=== PATIENT | female | born 1945 | race African-American/Black ===

== ENCOUNTER 2018-05-10 05:29 | Inpatient (IN) | payer OTHER ==
[2018-05-10] VITALS (23 sets, daily range): BP systolic 119–169; BP diastolic 63–91
[~2018-05-10] VITALS: Ht 172.7 cm; Wt 73.5 kg
[2018-05-10] MEDS ORDERED: CARV6.2511 PO (05:51)
[2018-05-10] MEDS ORDERED: PANTOPRAZOLE IV PUSH 40 MG VIAL. IVP ONE (06:30)
[2018-05-10] MEDS ORDERED: IV NORMAL SALINE 500ML BAG 500 ML IV SCH (06:30)
--- NOTE | 2018-05-10 06:32 | PHYS DOC ---
Past Medical History Past Medical History: Hypertension Additional Past Medical Histor: hemmorroids Past Surgical History: No Surgical History Smoking: Cigarettes, Less than 1pk/day Alcohol Use: Rarely Drug Use: None Adult General Chief Complaint Chief Complaint: RECTAL BLEED [facility] HPI Patient is a 72 year old female who presents with complaining of anal bleeding. Patient complaining of 5 episodes of rectal bleeding since 2300 last night with bright red blood and blood clots mixed with stool that changed to pure blood this morning. Patient reported mild dizziness without abdominal pain , nausea and vomiting, urinary symptoms, shortness of breath and chest pain, history of GI bleeding, taking anticoagulating or [id number] NSAIDS. Patient denies constipation or diarrhea and states she usually has 2-3 episodes of firm stool every day without new change recently. Patient states she had 2 unremarkable colonoscopy and the last one was about 5 or 6 years ago. Review of Systems Review of Systems Constitutional: Denies fever or chills [] Eyes: Denies change in visual acuity, redness, or eye pain [] HENT: Denies nasal congestion or sore throat [] Respiratory: Denies cough or shortness of breath [] Cardiovascular: No additional information not addressed in HPI [] GI: Denies abdominal pain, nausea, vomiting, diarrhea, reports bloody stools [] : Denies dysuria or hematuria [] Musculoskeletal: Denies back pain or joint pain [] Integument: Denies rash or skin lesions [] Neurologic: Denies headache, focal weakness or sensory changes [] Endocrine: Denies polyuria or polydipsia [] All other systems were reviewed and found to be within normal limits, except as documented in this note. Current Medications Current Medications Current Medications Medications (Trade) Dose Ordered Sig/Madeleine Start Time Stop Time Status Last Admin Dose Admin Pantoprazole Sodium (PROTONIX VIAL for IV PUSH) 40 mg 1X ONCE 05/10/18 06:30 05/10/18 06:31 DC 05/10/18 06:36 40 MG Sodium Chloride 500 ml @ 500 mls/hr Q1H 05/10/18 06:30 05/10/18 06:37 DC 05/10/18 06:36 500 MLS/HR Allergies Allergies Allergies Coded Allergies Type Severity Reaction Last Updated Verified No Known Drug Allergies 05/10/18 No Physical Exam Physical Exam Constitutional: Well developed, well nourished, mild distress, non-toxic appearance. [] HENT: Normocephalic, atraumatic, oropharynx moist.] Eyes: PERRLA, EOMI, conjunctiva normal, no discharge. [] Neck: Normal range of motion, no tenderness, supple, no stridor. [] Cardiovascular:Heart rate regular rhythm, no murmur [] Lungs & Thorax: Bilateral breath sounds clear to auscultation [] Abdomen: Bowel sounds normal, soft, no tenderness, no masses, no pulsatile masses. Rectal exam with present of ux ui designer showed blood on diaper and around anal area with gross blood in rectum without palpable mass. Skin: Warm, dry, no erythema, no rash. [] Back: No tenderness, no CVA tenderness. [] Extremities: No tenderness, no cyanosis, no clubbing, ROM intact, 2+ bilateral lower extremity edema. [] Neurologic: Alert and oriented X 3, normal motor function, normal sensory function, no focal deficits noted. [] Psychologic: Affect normal, judgement normal, mood normal. [] Current Patient Data Vital Signs Vital Signs Date Time Temp Pulse Resp B/P (MAP) Pulse Ox O2 Delivery O2 Flow Rate FiO2 05/10/18 07:00 76 199/95 (129) 97 Room Air 05/10/18 06:28 20 05/10/18 05:40 97.4 97.4 Lab Values Laboratory Tests Test 05/10/18 06:25 White Blood Count 5.9 x10^3/uL (4.0-11.0) Red Blood Count 4.86 x10^6/uL (3.50-5.40) Hemoglobin 11.0 g/dL (12.0-15.5) L Hematocrit 35.0 % (36.0-47.0) L Mean Corpuscular Volume 72 fL (79-100) L Mean Corpuscular Hemoglobin 23 pg (25-35) L Mean Corpuscular Hemoglobin Concent 31 g/dL (31-37) Red Cell Distribution Width 15.7 % (11.5-14.5) H Platelet Count 193 x10^3/uL (140-400) Neutrophils (%) (Auto) 61 % (31-73) Lymphocytes (%) (Auto) 27 % (24-48) Monocytes (%) (Auto) 9 % (0-9) Eosinophils (%) (Auto) 2 % (0-3) Basophils (%) (Auto) 1 % (0-3) Neutrophils # (Auto) 3.6 x10^3uL (1.8-7.7) Lymphocytes # (Auto) 1.6 x10^3/uL (1.0-4.8) Monocytes # (Auto) 0.5 x10^3/uL (0.0-1.1) Eosinophils # (Auto) 0.1 x10^3/uL (0.0-0.7) Basophils # (Auto) 0.1 x10^3/uL (0.0-0.2) Platelet Estimate Adequate (ADEQUATE) Anisocytosis Slight Prothrombin Time 14.2 SEC (11.7-14.0) H Prothrombin Time INR 1.1 (0.8-1.1) PTT 32 SEC (24-38) Sodium Level 141 mmol/L (136-145) Potassium Level 3.6 mmol/L (3.5-5.1) Chloride Level 106 mmol/L (98-107) Carbon Dioxide Level 25 mmol/L (21-32) Anion Gap 10 (6-14) Blood Urea Nitrogen 16 mg/dL (7-20) Creatinine 1.0 mg/dL (0.6-1.0) Estimated GFR (Cockcroft-Gault) 65.6 BUN/Creatinine Ratio 16 (6-20) Glucose Level 112 mg/dL (70-99) H Calcium Level 8.5 mg/dL (8.5-10.1) Total Bilirubin 0.5 mg/dL (0.2-1.0) Aspartate Amino Transferase (AST) 43 U/L (15-37) H Alanine Aminotransferase (ALT) 30 U/L (14-59) Alkaline Phosphatase 61 U/L (46-116) Troponin I Quantitative 0.072 ng/mL (0.000-0.055) WS-Hvf-D-Type Natriuretic Peptide 22155 pg/mL (0-124) H Total Protein 7.0 g/dL (6.4-8.2) Albumin 2.8 g/dL (3.4-5.0) L Albumin/Globulin Ratio 0.7 (1.0-1.7) L Laboratory Tests 05/10/18 06:25 Laboratory Tests 05/10/18 06:25 EKG EKG EKG interpreted by me. EKG at 0713 showed normal sinus rhythm at rate of 74, prolonged TX interval at 232, prolonged QTc interval, left atrial abnormalities , leftward axis, left bundle branch block, no acute ST abnormalities. Radiology/Procedures Radiology/Procedures [facility] [address] [place] [address] IMAGING REPORT Signed PATIENT: ALISE BAR ACCOUNT: [id number] : 1945 LOCATION: [facility] ICU AGE: 72 SEX: F EXAM STATUS: ADM IN ORD. PHYSICIAN: RAAD BAXTER MD REASON: elevated BNP and hypertension 21 PROCEDURE: PORTABLE CHEST 1V Portable chest, 05/10/2018: HISTORY: Elevated BNP and hypertension The heart is enlarged. There is calcific plaquing the aorta. The pulmonary vascularity is normal. No pulmonary infiltrate is seen. There is no evidence of pleural fluid. IMPRESSION: 1. Cardiomegaly and aortic atherosclerosis. 2. No acute infiltrates. Electronically signed by: Terrell Mack MD (05/10/2018 8:40 AM) [facility] DICTATED and SIGNED BY: TERRELL MACK MD DATE: 05/10/18839 Course & Med Decision Making Course & Med Decision Making Pertinent Labs and Imaging studies reviewed. (See chart for details) Evaluation of patient in ER showed 72-year-old female patient complaining of several episodes of rectal bleeding. Patient had obvious gross blood in rectum and had 1 episodes of rectal bleeding with large amount of blood clot while she was in ER. Patient had blood pressure of more than 200 in several checking and stated that she didn't take her blood pressure medication today. Patient did not have type tachycardia or altered level of consciousness. Hemoglobin was 11.0. On-call GI doctor Aftab was consulted at 0737 and plans to see patient in ICU. Patient had BMP of more than 10,000 and marked elevation of troponin that could be related to enlarged heart showed left bundle branch block without old EKG to compare. Dr. Miller accepted admission at 0801. 0900: Patient had another episode of large rectal bleeding with blood clots and drop off blood pressure to 98 that improved with starting IV fluids to 148 without tachycardia. Admitting hospitalist was at bedside at the time of rectal bleeding. Dragon Disclaimer Dragon Disclaimer This electronic medical record was generated, in whole or in part, using a voice recognition dictation system. Departure Departure Impression: Primary Impression: Lower GI bleeding Additional Impressions: Elevated troponin I level CHF (congestive heart failure) Hypertensive urgency Disposition: ADMITTED INPATIENT (at 0704) Admitting Physician: Maribel Miller Condition: IMPROVED Referrals: ORLIN CHAPARRO MD (PCP) Critical Care Time Critical care time was 70 minutes exclusive of procedures. Problem Qualifiers RAAD BAXTER MD May 10, 2018 06:32
[2018-05-10 06:36] LABS: BASO # 0.1 x10^3/uL (0.0-0.2); BASO % 1 % (0-3); EOS # 0.1 x10^3/uL (0.0-0.7); EOS % 2 % (0-3); LYMPH # 1.6 x10^3/uL (1.0-4.8); LYMPH % 27 % (24-48); MEAN CORPUSCULAR HEMOGLOBIN 23 pg (25-35); MEAN CORPUSCULAR HGB CONC 31 g/dL (31-37); MEAN CORPUSCULAR VOLUME 72 fL (79-100); MONO # 0.5 x10^3/uL (0.0-1.1); MONO % 9 % (0-9); NEUT # 3.6 x10^3uL (1.8-7.7); NEUT % 61 % (31-73); PLATELET COUNT 193 x10^3/uL (140-400); RED BLOOD COUNT 4.86 x10^6/uL (3.50-5.40); RED CELL DISTRIBUTION WIDTH 15.7 % (11.5-14.5); WHITE BLOOD COUNT 5.9 x10^3/uL (4.0-11.0)
[2018-05-10 06:47] LABS: CALCIUM 8.5 mg/dL (8.5-10.1); GFR 65.6; POTASSIUM 3.6 mmol/L (3.5-5.1)
[2018-05-10 06:50] LABS: PROTHROMBIN TIME PATIENT 14.2 SEC (11.7-14.0)
[2018-05-10 06:53] LABS: ALBUMIN 2.8 g/dL (3.4-5.0); ALBUMIN/GLOBULIN RATIO 0.7 (1.0-1.7); TOTAL BILIRUBIN 0.5 mg/dL (0.2-1.0)
--- NOTE | 2018-05-10 07:30 | EKG ---
[facility] [address] [place] [address] Test Date: 2018-05-10 Test Time: 07:13:09 Pat Name: ALISE BAR Department: Room: Gender: F [employer] Guide: : 1945 Requested By: RAAD BAXTER Order Number: [id number] Reading MD: Wilder Clemens MD Measurements Intervals [place] Rate: 74 P: 67 OK: 232 QRS: -29 QRSD: 156 T: 148 QT: 478 QTc: 531 Interpretive Statements SINUS RHYTHM PROLONGED OK INTERVAL LEFT ATRIAL ABNORMALITY LEFTWARD AXIS LVH LBBB CANNOT RULE OUT ISCHEMIA CONSISTENT WITH INFERIOR INFARCT PROBABLY OLD ABNORMAL ECG Electronically Signed On 05-13-2018 22:03:26 CDT by Wilder Clemens MD
[2018-05-10 07:50] LABS: FECAL OB PT POSITIVE (NEG)
[2018-05-10 07:53] LABS: ANISOCYTOSIS SLIGHT; PLT ESTIMATE ADEQUATE (ADEQUATE)
[2018-05-10] MEDS ORDERED: hydrALAZINE 20 MG/ML VIAL. IVP ONE (08:00)
--- NOTE | 2018-05-10 08:40 | PDOC2 ---
GI CONSULT Reason For Consult: Lower GI Bleed HPI: HPI: 72 y/o female who I saw in the ER. Reports acute onset of rectal bleeding last night at 11:00 p.m. At first occurred with brown stool, then recurred (red blood only) x 5 times at home and a few times in the ER. Denies h/o GI bleeding. Denies use of blood thinning meds. Denies diarrhea or constipation, n/v, reflux/heartburn, and abd pain. She seemed to be feeling fine when I walked in - then she said she felt hot and nauseated and began passing blood again. At that point, she seemed unable to answer more questions. I asked about h/o hemorrhoids and she could not elaborate. Had colonoscopy in 04/2009 w/ Dr. Fany Garza that showed advanced diverticular disease throughout the colon except the rectum with an area that appeared to be inflamed c/w diverticulitis in the lower descending and proximal sigmoid colon regions. Questionable polyp in sigmoid colon - path c/w prominent fold w/ melanosis coli and mucosal-associated lymphoid aggregate. Quite hypertensive at first, now improved. HR remains WNL. Hgb 11 w/ MCV 72. Normal plt, INR, and BUN. Slightly elevated troponin and BNP. PMH: PMH: HTN, diverticulosis/itis, hemorrhoids FH: Family History: No pertinent hx Social History: Smoke: No ALCOHOL: none ROS: GEN: +sweats HEENT: Denies blurred vision, sore throat CV: Denies chest pain RESP: Denies shortness of air, cough GI: Per HPI : Denies hematuria, dysuria ENDO: Denies weight changes NEURO: Denies confusion, dizziness MSK: +weakness SKIN: Denies jaundice, pruritus Vitals: Vitals: Vital Signs Date Time Temp Pulse Resp B/P (MAP) Pulse Ox O2 Delivery O2 Flow Rate FiO2 05/10/18 08:29 86 161/83 (109) 99 Room Air 05/10/18 06:28 20 05/10/18 05:40 97.4 97.4 Labs: Labs: Laboratory Tests Test 05/10/18 06:25 05/10/18 07:35 White Blood Count 5.9 x10^3/uL (4.0-11.0) Red Blood Count 4.86 x10^6/uL (3.50-5.40) Hemoglobin 11.0 g/dL (12.0-15.5) Hematocrit 35.0 % (36.0-47.0) Mean Corpuscular Volume 72 fL (79-100) Mean Corpuscular Hemoglobin 23 pg (25-35) Mean Corpuscular Hemoglobin Concent 31 g/dL (31-37) Red Cell Distribution Width 15.7 % (11.5-14.5) Platelet Count 193 x10^3/uL (140-400) Neutrophils (%) (Auto) 61 % (31-73) Lymphocytes (%) (Auto) 27 % (24-48) Monocytes (%) (Auto) 9 % (0-9) Eosinophils (%) (Auto) 2 % (0-3) Basophils (%) (Auto) 1 % (0-3) Neutrophils # (Auto) 3.6 x10^3uL (1.8-7.7) Lymphocytes # (Auto) 1.6 x10^3/uL (1.0-4.8) Monocytes # (Auto) 0.5 x10^3/uL (0.0-1.1) Eosinophils # (Auto) 0.1 x10^3/uL (0.0-0.7) Basophils # (Auto) 0.1 x10^3/uL (0.0-0.2) Platelet Estimate Adequate (ADEQUATE) Anisocytosis Slight Prothrombin Time 14.2 SEC (11.7-14.0) Prothromb Time International Ratio 1.1 (0.8-1.1) Activated Partial Thromboplast Time 32 SEC (24-38) Sodium Level 141 mmol/L (136-145) Potassium Level 3.6 mmol/L (3.5-5.1) Chloride Level 106 mmol/L (98-107) Carbon Dioxide Level 25 mmol/L (21-32) Anion Gap 10 (6-14) Blood Urea Nitrogen 16 mg/dL (7-20) Creatinine 1.0 mg/dL (0.6-1.0) Estimated GFR (Cockcroft-Gault) 65.6 BUN/Creatinine Ratio 16 (6-20) Glucose Level 112 mg/dL (70-99) Calcium Level 8.5 mg/dL (8.5-10.1) Total Bilirubin 0.5 mg/dL (0.2-1.0) Aspartate Amino Transf (AST/SGOT) 43 U/L (15-37) Alanine Aminotransferase (ALT/SGPT) 30 U/L (14-59) Alkaline Phosphatase 61 U/L (46-116) Troponin I Quantitative 0.072 ng/mL (0.000-0.055) UI-Pxn-A-Type Natriuretic Peptide 90156 pg/mL (0-124) Total Protein 7.0 g/dL (6.4-8.2) Albumin 2.8 g/dL (3.4-5.0) Albumin/Globulin Ratio 0.7 (1.0-1.7) Stool Occult Blood Positive (NEG) Allergies: Coded Allergies: No Known Drug Allergies (Unverified , 05/10/18) Medications: Current Medications Medications (Trade) Dose Ordered Sig/Madeleine Route PRN Reason Start Time Stop Time Status Last Admin Dose Admin Sodium Chloride 500 ml @ 500 mls/hr Q1H IV 05/10/18 06:30 05/10/18 06:37 DC 05/10/18 06:36 Pantoprazole Sodium (PROTONIX VIAL for IV PUSH) 40 mg 1X ONCE IVP 05/10/18 06:30 05/10/18 06:31 DC 05/10/18 06:36 Hydralazine HCl (Apresoline Inj) 10 mg 1X ONCE IVP 05/10/18 08:00 05/10/18 08:01 DC 05/10/18 08:12 Imaging: Imaging: CXR IMPRESSION: 1. Cardiomegaly and aortic atherosclerosis. 2. No acute infiltrates. PE: GEN: NAD HEENT: Atraumatic, PERRL LUNGS: CTAB HEART: RRR ABD: NABS, S/ND/NT EXTREMITY: No edema SKIN: clammy NEURO/PSYCH: A & O 3 - then a bit altered A/P: A/P: Hematochezia Microcytic anemia, +fecal occult H/o diverticular disease CRC screen - ?last in 2009 HTN, mildly elevated troponin, elevated BNP -- Actively passing blood in ER - suspect diverticular bleed. NPO, agree w/ PPI drip, bleeding scan. Monitor vitals and Hgb. D/w hospitalist and surgery, also note plans for IR consult. AMX DE JESUS May 10, 2018 08:40
--- NOTE | 2018-05-10 08:44 | RAD ---
Portable chest, 05/10/2018: HISTORY: Elevated BNP and hypertension The heart is enlarged. There is calcific plaquing the aorta. The pulmonary vascularity is normal. No pulmonary infiltrate is seen. There is no evidence of pleural fluid. IMPRESSION: 1. Cardiomegaly and aortic atherosclerosis. 2. No acute infiltrates. Electronically signed by: Terrell Mack MD (05/10/2018 8:40 AM) [facility]
[2018-05-10] MEDS ORDERED: ONDANSETRON PF 4 MG/2 ML VIAL. ONE (08:50)
[2018-05-10] MEDS ORDERED: ONDANSETRON PF 4 MG/2 ML VIAL. IV ONE (09:00)
[2018-05-10] MEDS ORDERED: IV NORMAL SALINE 1000ML BAG 1,000 ML IV ONE (09:00)
[2018-05-10] MEDS: amLODIPine BESYLATE 5 MG TABLET PO SCH (09:00)
--- NOTE | 2018-05-10 09:07 | PDOC2 ---
JASON GRAY TOURIST INFORMATION ASSISTANT 05/10/18 0907: CONSULT Date of Consult Date of Consult DATE: 05/10/18 TIME: 09:07 Reason for Consult Reason for Consult: GI bleed Referring Physician Referring Physician: Dr Miller Identification/Chief Complaint Chief Complaint Gi bleeding Source Source: Chart review, Patient History of Present Illness Reason for Visit: I seen her twice--in ER she was actively passing blood and unable to really answer any questions, just mumbled I seen her again in ICU short time later and was more alert and able to answer questions Reports acute onset of rectal bleeding last night at 11pm. She denies any previous episodes. Reports previous colonoscopies--I d/w with GI --noted advanced diverticular disease on previous scope. Denies n/v, abdominal pain. No hx of NSAID use or blood thinners. Past Medical History Cardiovascular: HTN GI: Diverticulosis Past Surgical History Past Surgical History: No pertinent history Family History Family History: Other (noncontributory to current illness ) Social History No ALCOHOL: rare Drugs: None Lives: Alone Current Problem List Problem List Problems Medical Problems: (1) CHF (congestive heart failure) Status: Acute (2) Elevated troponin I level Status: Acute (3) Hypertensive urgency Status: Acute (4) Lower GI bleeding Status: Acute Current Medications Current Medications Current Medications Sodium Chloride 500 ml @ 500 mls/hr Q1H IV Last administered on 05/10/18at 06: 36; Start 05/10/18 at 06:30; Stop 05/10/18 at 06:37; Status DC Pantoprazole Sodium (PROTONIX VIAL for IV PUSH) 40 mg 1X ONCE IVP Last administered on 05/10/18at 06:36; Start 05/10/18 at 06:30; Stop 05/10/18 at 06:31 ; Status DC Hydralazine HCl (Apresoline Inj) 10 mg 1X ONCE IVP Last administered on at 08:12; Start 05/10/18 at 08:00; Stop 05/10/18 at 08:01; Status DC Amlodipine Besylate (Norvasc) 5 mg DAILY PO ; Start 05/10/18 at 09:00 Sodium Chloride 1,000 ml @ 100 mls/hr Q10H IV ; Start 05/10/18 at 08:02; Stop 05/11/18 at 08:01 Pantoprazole Sodium 80 mg/ Sodium Chloride 100 ml @ 10 mls/hr Q10H IV ; Start 05/10/18 at 08:15 Ondansetron HCl (Zofran) 4 mg 1X ONCE IV Last administered on 05/10/18at 08:52 ; Start 05/10/18 at 09:00; Stop 05/10/18 at 09:01; Status DC Ondansetron HCl (Zofran) 4 mg STK-MED ONCE .ROUTE ; Start 05/10/18 at 08:50; Stop 05/10/18 at 08:51; Status DC Sodium Chloride 1,000 ml @ 1,000 mls/hr 1X ONCE IV ; Start 05/10/18 at 09:00; Stop 05/10/18 at 09:59 Active Scripts Active Reported Carvedilol (Carvedilol) 6.25 Mg Tablet 6.25 Mg PO BIDWMEALS PRN Allergies Allergies: Coded Allergies: No Known Drug Allergies (Unverified , 05/10/18) ROS General: YES: Fatigue; No: Chills PSYCHOLOGICAL ROS: No: Anxiety, Depression Eyes: No Blurry vision, No Double vision HEENT: No: Heacaches, Sore Throat Hematological and Lymphatic: YES: Bleeding Problems, Other (see hpi); No: Blood Clots Respiratory: No: Cough, Shortness of breath Cardiovascular: No Chest Pain, No Palpitations Gastrointestinal: Yes Other (see hpi); No Nausea, No Vomiting, No Abdominal Pain Genitourinary: No Dysuria, No Hematuria Musculoskeletal: No Joint Pain, No Muscle Pain Neurological: Yes Dizziness; No Numbness/Tingling Skin: No Pruritus, No Rash Physical Exam General: Other (shes had some confusion, however repeat exam was clear and able to answer questions ) HEENT: Atraumatic, Mucous membr. moist/pink Lungs: Clear to auscultation, Normal air movement Heart: Regular rate, Normal S1, Normal S2, No murmurs Abdomen: Soft, No tenderness, Other (ND) Extremities: No clubbing, No cyanosis Skin: No rashes, No breakdown Neuro: Normal speech, Sensation intact Psych/Mental Status: Mental status NL, Mood NL MUSCULOSKELETAL: No deformity, No swelling Vitals VITALS Vital Signs Date Time Temp Pulse Resp B/P (MAP) Pulse Ox O2 Delivery O2 Flow Rate FiO2 05/10/18 09:00 78 148/77 (100) 99 Room Air 05/10/18 06:28 20 05/10/18 05:40 97.4 97.4 Labs Labs Laboratory Tests Test 05/10/18 06:25 05/10/18 07:35 White Blood Count 5.9 x10^3/uL (4.0-11.0) Red Blood Count 4.86 x10^6/uL (3.50-5.40) Hemoglobin 11.0 g/dL (12.0-15.5) Hematocrit 35.0 % (36.0-47.0) Mean Corpuscular Volume 72 fL (79-100) Mean Corpuscular Hemoglobin 23 pg (25-35) Mean Corpuscular Hemoglobin Concent 31 g/dL (31-37) Red Cell Distribution Width 15.7 % (11.5-14.5) Platelet Count 193 x10^3/uL (140-400) Neutrophils (%) (Auto) 61 % (31-73) Lymphocytes (%) (Auto) 27 % (24-48) Monocytes (%) (Auto) 9 % (0-9) Eosinophils (%) (Auto) 2 % (0-3) Basophils (%) (Auto) 1 % (0-3) Neutrophils # (Auto) 3.6 x10^3uL (1.8-7.7) Lymphocytes # (Auto) 1.6 x10^3/uL (1.0-4.8) Monocytes # (Auto) 0.5 x10^3/uL (0.0-1.1) Eosinophils # (Auto) 0.1 x10^3/uL (0.0-0.7) Basophils # (Auto) 0.1 x10^3/uL (0.0-0.2) Platelet Estimate Adequate (ADEQUATE) Anisocytosis Slight Prothrombin Time 14.2 SEC (11.7-14.0) Prothromb Time International Ratio 1.1 (0.8-1.1) Activated Partial Thromboplast Time 32 SEC (24-38) Sodium Level 141 mmol/L (136-145) Potassium Level 3.6 mmol/L (3.5-5.1) Chloride Level 106 mmol/L (98-107) Carbon Dioxide Level 25 mmol/L (21-32) Anion Gap 10 (6-14) Blood Urea Nitrogen 16 mg/dL (7-20) Creatinine 1.0 mg/dL (0.6-1.0) Estimated GFR (Cockcroft-Gault) 65.6 BUN/Creatinine Ratio 16 (6-20) Glucose Level 112 mg/dL (70-99) Calcium Level 8.5 mg/dL (8.5-10.1) Total Bilirubin 0.5 mg/dL (0.2-1.0) Aspartate Amino Transf (AST/SGOT) 43 U/L (15-37) Alanine Aminotransferase (ALT/SGPT) 30 U/L (14-59) Alkaline Phosphatase 61 U/L (46-116) Troponin I Quantitative 0.072 ng/mL (0.000-0.055) GC-Uvy-E-Type Natriuretic Peptide 84197 pg/mL (0-124) Total Protein 7.0 g/dL (6.4-8.2) Albumin 2.8 g/dL (3.4-5.0) Albumin/Globulin Ratio 0.7 (1.0-1.7) Stool Occult Blood Positive (NEG) Laboratory Tests Test 05/10/18 06:25 05/10/18 07:35 White Blood Count 5.9 x10^3/uL (4.0-11.0) Red Blood Count 4.86 x10^6/uL (3.50-5.40) Hemoglobin 11.0 g/dL (12.0-15.5) Hematocrit 35.0 % (36.0-47.0) Mean Corpuscular Volume 72 fL (79-100) Mean Corpuscular Hemoglobin 23 pg (25-35) Mean Corpuscular Hemoglobin Concent 31 g/dL (31-37) Red Cell Distribution Width 15.7 % (11.5-14.5) Platelet Count 193 x10^3/uL (140-400) Neutrophils (%) (Auto) 61 % (31-73) Lymphocytes (%) (Auto) 27 % (24-48) Monocytes (%) (Auto) 9 % (0-9) Eosinophils (%) (Auto) 2 % (0-3) Basophils (%) (Auto) 1 % (0-3) Neutrophils # (Auto) 3.6 x10^3uL (1.8-7.7) Lymphocytes # (Auto) 1.6 x10^3/uL (1.0-4.8) Monocytes # (Auto) 0.5 x10^3/uL (0.0-1.1) Eosinophils # (Auto) 0.1 x10^3/uL (0.0-0.7) Basophils # (Auto) 0.1 x10^3/uL (0.0-0.2) Platelet Estimate Adequate (ADEQUATE) Anisocytosis Slight Prothrombin Time 14.2 SEC (11.7-14.0) Prothromb Time International Ratio 1.1 (0.8-1.1) Activated Partial Thromboplast Time 32 SEC (24-38) Sodium Level 141 mmol/L (136-145) Potassium Level 3.6 mmol/L (3.5-5.1) Chloride Level 106 mmol/L (98-107) Carbon Dioxide Level 25 mmol/L (21-32) Anion Gap 10 (6-14) Blood Urea Nitrogen 16 mg/dL (7-20) Creatinine 1.0 mg/dL (0.6-1.0) Estimated GFR (Cockcroft-Gault) 65.6 BUN/Creatinine Ratio 16 (6-20) Glucose Level 112 mg/dL (70-99) Calcium Level 8.5 mg/dL (8.5-10.1) Total Bilirubin 0.5 mg/dL (0.2-1.0) Aspartate Amino Transf (AST/SGOT) 43 U/L (15-37) Alanine Aminotransferase (ALT/SGPT) 30 U/L (14-59) Alkaline Phosphatase 61 U/L (46-116) Troponin I Quantitative 0.072 ng/mL (0.000-0.055) RN-Yxe-C-Type Natriuretic Peptide 34305 pg/mL (0-124) Total Protein 7.0 g/dL (6.4-8.2) Albumin 2.8 g/dL (3.4-5.0) Albumin/Globulin Ratio 0.7 (1.0-1.7) Stool Occult Blood Positive (NEG) Assessment/Plan Assessment/Plan acute lower GI bleed hgb 11, INR normal, platelets normal previous scope findings of advance diverticular disease PPI, bleeding scan pending GI following IR consult noted MIKE ROA MD 05/10/18 9361: CONSULT Assessment/Plan Assessment/Plan Reviewed; bleeding scan with no active bleeding; continue to monitor JASON GRAY APRN May 10, 2018 09:07 MIKE ROA MD May 10, 2018 17:21
--- NOTE | 2018-05-10 09:15 | PDOC1 ---
History and Physical Date of Admission Date of Admission DATE: 05/10/18 TIME: 09:15 Identification/Chief Complaint Chief Complaint WRONG PATIENT/// ERROR NOT MY PATIENT,// IGNORE DR JAY IS SEEING Current Problem List Problem List Problems Medical Problems: (1) CHF (congestive heart failure) Status: Acute (2) Elevated troponin I level Status: Acute (3) Hypertensive urgency Status: Acute (4) Lower GI bleeding Status: Acute Current Medications Current Medications Current Medications Sodium Chloride 500 ml @ 500 mls/hr Q1H IV Last administered on 05/10/18at 06: 36; Start 05/10/18 at 06:30; Stop 05/10/18 at 06:37; Status DC Pantoprazole Sodium (PROTONIX VIAL for IV PUSH) 40 mg 1X ONCE IVP Last administered on 05/10/18at 06:36; Start 05/10/18 at 06:30; Stop 05/10/18 at 06:31 ; Status DC Hydralazine HCl (Apresoline Inj) 10 mg 1X ONCE IVP Last administered on at 08:12; Start 05/10/18 at 08:00; Stop 05/10/18 at 08:01; Status DC Amlodipine Besylate (Norvasc) 5 mg DAILY PO ; Start 05/10/18 at 09:00 Sodium Chloride 1,000 ml @ 100 mls/hr Q10H IV ; Start 05/10/18 at 08:02; Stop 05/11/18 at 08:01 Pantoprazole Sodium 80 mg/ Sodium Chloride 100 ml @ 10 mls/hr Q10H IV ; Start 05/10/18 at 08:15 Ondansetron HCl (Zofran) 4 mg 1X ONCE IV Last administered on 05/10/18at 08:52 ; Start 05/10/18 at 09:00; Stop 05/10/18 at 09:01; Status DC Ondansetron HCl (Zofran) 4 mg STK-MED ONCE .ROUTE ; Start 05/10/18 at 08:50; Stop 05/10/18 at 08:51; Status DC Sodium Chloride 1,000 ml @ 1,000 mls/hr 1X ONCE IV Last administered on at 09:00; Start 05/10/18 at 09:00; Stop 05/10/18 at 09:59 Active Scripts Active Reported Carvedilol (Carvedilol) 6.25 Mg Tablet 6.25 Mg PO BIDWMEALS PRN Allergies Allergies: Coded Allergies: No Known Drug Allergies (Unverified , 05/10/18) Vitals Vitals Vital Signs Date Time Temp Pulse Resp B/P (MAP) Pulse Ox O2 Delivery O2 Flow Rate FiO2 05/10/18 09:00 78 148/77 (100) 99 Room Air 05/10/18 06:28 20 05/10/18 05:40 97.4 97.4 Labs Labs Laboratory Tests Test 05/10/18 06:25 05/10/18 07:35 White Blood Count 5.9 x10^3/uL (4.0-11.0) Red Blood Count 4.86 x10^6/uL (3.50-5.40) Hemoglobin 11.0 g/dL (12.0-15.5) Hematocrit 35.0 % (36.0-47.0) Mean Corpuscular Volume 72 fL (79-100) Mean Corpuscular Hemoglobin 23 pg (25-35) Mean Corpuscular Hemoglobin Concent 31 g/dL (31-37) Red Cell Distribution Width 15.7 % (11.5-14.5) Platelet Count 193 x10^3/uL (140-400) Neutrophils (%) (Auto) 61 % (31-73) Lymphocytes (%) (Auto) 27 % (24-48) Monocytes (%) (Auto) 9 % (0-9) Eosinophils (%) (Auto) 2 % (0-3) Basophils (%) (Auto) 1 % (0-3) Neutrophils # (Auto) 3.6 x10^3uL (1.8-7.7) Lymphocytes # (Auto) 1.6 x10^3/uL (1.0-4.8) Monocytes # (Auto) 0.5 x10^3/uL (0.0-1.1) Eosinophils # (Auto) 0.1 x10^3/uL (0.0-0.7) Basophils # (Auto) 0.1 x10^3/uL (0.0-0.2) Platelet Estimate Adequate (ADEQUATE) Anisocytosis Slight Prothrombin Time 14.2 SEC (11.7-14.0) Prothromb Time International Ratio 1.1 (0.8-1.1) Activated Partial Thromboplast Time 32 SEC (24-38) Sodium Level 141 mmol/L (136-145) Potassium Level 3.6 mmol/L (3.5-5.1) Chloride Level 106 mmol/L (98-107) Carbon Dioxide Level 25 mmol/L (21-32) Anion Gap 10 (6-14) Blood Urea Nitrogen 16 mg/dL (7-20) Creatinine 1.0 mg/dL (0.6-1.0) Estimated GFR (Cockcroft-Gault) 65.6 BUN/Creatinine Ratio 16 (6-20) Glucose Level 112 mg/dL (70-99) Calcium Level 8.5 mg/dL (8.5-10.1) Total Bilirubin 0.5 mg/dL (0.2-1.0) Aspartate Amino Transf (AST/SGOT) 43 U/L (15-37) Alanine Aminotransferase (ALT/SGPT) 30 U/L (14-59) Alkaline Phosphatase 61 U/L (46-116) Troponin I Quantitative 0.072 ng/mL (0.000-0.055) YK-Nyz-P-Type Natriuretic Peptide 92087 pg/mL (0-124) Total Protein 7.0 g/dL (6.4-8.2) Albumin 2.8 g/dL (3.4-5.0) Albumin/Globulin Ratio 0.7 (1.0-1.7) Stool Occult Blood Positive (NEG) Laboratory Tests Test 05/10/18 06:25 05/10/18 07:35 White Blood Count 5.9 x10^3/uL (4.0-11.0) Red Blood Count 4.86 x10^6/uL (3.50-5.40) Hemoglobin 11.0 g/dL (12.0-15.5) Hematocrit 35.0 % (36.0-47.0) Mean Corpuscular Volume 72 fL (79-100) Mean Corpuscular Hemoglobin 23 pg (25-35) Mean Corpuscular Hemoglobin Concent 31 g/dL (31-37) Red Cell Distribution Width 15.7 % (11.5-14.5) Platelet Count 193 x10^3/uL (140-400) Neutrophils (%) (Auto) 61 % (31-73) Lymphocytes (%) (Auto) 27 % (24-48) Monocytes (%) (Auto) 9 % (0-9) Eosinophils (%) (Auto) 2 % (0-3) Basophils (%) (Auto) 1 % (0-3) Neutrophils # (Auto) 3.6 x10^3uL (1.8-7.7) Lymphocytes # (Auto) 1.6 x10^3/uL (1.0-4.8) Monocytes # (Auto) 0.5 x10^3/uL (0.0-1.1) Eosinophils # (Auto) 0.1 x10^3/uL (0.0-0.7) Basophils # (Auto) 0.1 x10^3/uL (0.0-0.2) Platelet Estimate Adequate (ADEQUATE) Anisocytosis Slight Prothrombin Time 14.2 SEC (11.7-14.0) Prothromb Time International Ratio 1.1 (0.8-1.1) Activated Partial Thromboplast Time 32 SEC (24-38) Sodium Level 141 mmol/L (136-145) Potassium Level 3.6 mmol/L (3.5-5.1) Chloride Level 106 mmol/L (98-107) Carbon Dioxide Level 25 mmol/L (21-32) Anion Gap 10 (6-14) Blood Urea Nitrogen 16 mg/dL (7-20) Creatinine 1.0 mg/dL (0.6-1.0) Estimated GFR (Cockcroft-Gault) 65.6 BUN/Creatinine Ratio 16 (6-20) Glucose Level 112 mg/dL (70-99) Calcium Level 8.5 mg/dL (8.5-10.1) Total Bilirubin 0.5 mg/dL (0.2-1.0) Aspartate Amino Transf (AST/SGOT) 43 U/L (15-37) Alanine Aminotransferase (ALT/SGPT) 30 U/L (14-59) Alkaline Phosphatase 61 U/L (46-116) Troponin I Quantitative 0.072 ng/mL (0.000-0.055) QC-Awe-T-Type Natriuretic Peptide 56127 pg/mL (0-124) Total Protein 7.0 g/dL (6.4-8.2) Albumin 2.8 g/dL (3.4-5.0) Albumin/Globulin Ratio 0.7 (1.0-1.7) Stool Occult Blood Positive (NEG) VTE Prophylaxis Ordered VTE Prophylaxis Devices: No VTE Pharmacological Prophylaxi: No WINNIE SELF MD May 10, 2018 09:15
[2018-05-10] MEDS: PANTOPRAZOLE SODIUM IV DRIP 80 MG in IV NORMAL SALINE 100ML 100 ML IV SCH ×2 (09:23→21:48)
[2018-05-10] MEDS: IV NORMAL SALINE 1000ML BAG 1,000 ML IV SCH ×2 (09:31→21:47)
[2018-05-10] MEDS ORDERED: HEPARIN for NUC MED 500 UNIT/5 ML DISP.SYRIN. IV ONE (09:45)
--- NOTE | 2018-05-10 10:04 | PDOC ---
PROGRESS NOTES Subjective Subjective pt seen briefly in ER at 0850, Dr. Galarza started an H+P before I did, will transition care bright red blood, initially hypertensive, then some BP drop, ongoing blood loss pt is reported to be AO x3 at baseline, some confusion with me in ER, she had trouble fining the right words, and got confused with talking to me Objective Objective Vital Signs Date Time Temp Pulse Resp B/P (MAP) Pulse Ox O2 Delivery O2 Flow Rate FiO2 05/10/18 09:00 78 148/77 (100) 99 Room Air 05/10/18 06:28 20 05/10/18 05:40 97.4 97.4 Assessment Assessment acute blood loss anemia bright red blood per rectum acute GI bleed acute encephalopathy, NOS admit to ICU discussed with ER physician x2, [employer], GI consult IR consult placed, gen surg tagged red scan ordered Problems Medical Problems: (1) CHF (congestive heart failure) Status: Acute (2) Elevated troponin I level Status: Acute (3) Hypertensive urgency Status: Acute (4) Lower GI bleeding Status: Acute Comment Review of Relevant I have reviewed the following items regina (where applicable) has been applied. Labs Laboratory Tests Test 05/10/18 06:25 05/10/18 07:35 White Blood Count 5.9 x10^3/uL (4.0-11.0) Red Blood Count 4.86 x10^6/uL (3.50-5.40) Hemoglobin 11.0 g/dL (12.0-15.5) Hematocrit 35.0 % (36.0-47.0) Mean Corpuscular Volume 72 fL (79-100) Mean Corpuscular Hemoglobin 23 pg (25-35) Mean Corpuscular Hemoglobin Concent 31 g/dL (31-37) Red Cell Distribution Width 15.7 % (11.5-14.5) Platelet Count 193 x10^3/uL (140-400) Neutrophils (%) (Auto) 61 % (31-73) Lymphocytes (%) (Auto) 27 % (24-48) Monocytes (%) (Auto) 9 % (0-9) Eosinophils (%) (Auto) 2 % (0-3) Basophils (%) (Auto) 1 % (0-3) Neutrophils # (Auto) 3.6 x10^3uL (1.8-7.7) Lymphocytes # (Auto) 1.6 x10^3/uL (1.0-4.8) Monocytes # (Auto) 0.5 x10^3/uL (0.0-1.1) Eosinophils # (Auto) 0.1 x10^3/uL (0.0-0.7) Basophils # (Auto) 0.1 x10^3/uL (0.0-0.2) Platelet Estimate Adequate (ADEQUATE) Anisocytosis Slight Prothrombin Time 14.2 SEC (11.7-14.0) Prothromb Time International Ratio 1.1 (0.8-1.1) Activated Partial Thromboplast Time 32 SEC (24-38) Sodium Level 141 mmol/L (136-145) Potassium Level 3.6 mmol/L (3.5-5.1) Chloride Level 106 mmol/L (98-107) Carbon Dioxide Level 25 mmol/L (21-32) Anion Gap 10 (6-14) Blood Urea Nitrogen 16 mg/dL (7-20) Creatinine 1.0 mg/dL (0.6-1.0) Estimated GFR (Cockcroft-Gault) 65.6 BUN/Creatinine Ratio 16 (6-20) Glucose Level 112 mg/dL (70-99) Calcium Level 8.5 mg/dL (8.5-10.1) Total Bilirubin 0.5 mg/dL (0.2-1.0) Aspartate Amino Transf (AST/SGOT) 43 U/L (15-37) Alanine Aminotransferase (ALT/SGPT) 30 U/L (14-59) Alkaline Phosphatase 61 U/L (46-116) Troponin I Quantitative 0.072 ng/mL (0.000-0.055) BS-Wwz-V-Type Natriuretic Peptide 56373 pg/mL (0-124) Total Protein 7.0 g/dL (6.4-8.2) Albumin 2.8 g/dL (3.4-5.0) Albumin/Globulin Ratio 0.7 (1.0-1.7) Stool Occult Blood Positive (NEG) Laboratory Tests Test 05/10/18 06:25 05/10/18 07:35 White Blood Count 5.9 x10^3/uL (4.0-11.0) Red Blood Count 4.86 x10^6/uL (3.50-5.40) Hemoglobin 11.0 g/dL (12.0-15.5) Hematocrit 35.0 % (36.0-47.0) Mean Corpuscular Volume 72 fL (79-100) Mean Corpuscular Hemoglobin 23 pg (25-35) Mean Corpuscular Hemoglobin Concent 31 g/dL (31-37) Red Cell Distribution Width 15.7 % (11.5-14.5) Platelet Count 193 x10^3/uL (140-400) Neutrophils (%) (Auto) 61 % (31-73) Lymphocytes (%) (Auto) 27 % (24-48) Monocytes (%) (Auto) 9 % (0-9) Eosinophils (%) (Auto) 2 % (0-3) Basophils (%) (Auto) 1 % (0-3) Neutrophils # (Auto) 3.6 x10^3uL (1.8-7.7) Lymphocytes # (Auto) 1.6 x10^3/uL (1.0-4.8) Monocytes # (Auto) 0.5 x10^3/uL (0.0-1.1) Eosinophils # (Auto) 0.1 x10^3/uL (0.0-0.7) Basophils # (Auto) 0.1 x10^3/uL (0.0-0.2) Platelet Estimate Adequate (ADEQUATE) Anisocytosis Slight Prothrombin Time 14.2 SEC (11.7-14.0) Prothromb Time International Ratio 1.1 (0.8-1.1) Activated Partial Thromboplast Time 32 SEC (24-38) Sodium Level 141 mmol/L (136-145) Potassium Level 3.6 mmol/L (3.5-5.1) Chloride Level 106 mmol/L (98-107) Carbon Dioxide Level 25 mmol/L (21-32) Anion Gap 10 (6-14) Blood Urea Nitrogen 16 mg/dL (7-20) Creatinine 1.0 mg/dL (0.6-1.0) Estimated GFR (Cockcroft-Gault) 65.6 BUN/Creatinine Ratio 16 (6-20) Glucose Level 112 mg/dL (70-99) Calcium Level 8.5 mg/dL (8.5-10.1) Total Bilirubin 0.5 mg/dL (0.2-1.0) Aspartate Amino Transf (AST/SGOT) 43 U/L (15-37) Alanine Aminotransferase (ALT/SGPT) 30 U/L (14-59) Alkaline Phosphatase 61 U/L (46-116) Troponin I Quantitative 0.072 ng/mL (0.000-0.055) XM-Knw-Z-Type Natriuretic Peptide 25180 pg/mL (0-124) Total Protein 7.0 g/dL (6.4-8.2) Albumin 2.8 g/dL (3.4-5.0) Albumin/Globulin Ratio 0.7 (1.0-1.7) Stool Occult Blood Positive (NEG) Medications Current Medications Sodium Chloride 500 ml @ 500 mls/hr Q1H IV Last administered on 05/10/18at 06: 36; Start 05/10/18 at 06:30; Stop 05/10/18 at 06:37; Status DC Pantoprazole Sodium (PROTONIX VIAL for IV PUSH) 40 mg 1X ONCE IVP Last administered on 05/10/18at 06:36; Start 05/10/18 at 06:30; Stop 05/10/18 at 06:31 ; Status DC Hydralazine HCl (Apresoline Inj) 10 mg 1X ONCE IVP Last administered on at 08:12; Start 05/10/18 at 08:00; Stop 05/10/18 at 08:01; Status DC Amlodipine Besylate (Norvasc) 5 mg DAILY PO ; Start 05/10/18 at 09:00 Sodium Chloride 1,000 ml @ 100 mls/hr Q10H IV Last administered on 05/10/18at 09:31; Start 05/10/18 at 08:02; Stop 05/11/18 at 08:01 Pantoprazole Sodium 80 mg/ Sodium Chloride 100 ml @ 10 mls/hr Q10H IV Last administered on 05/10/18at 09:23; Start 05/10/18 at 08:15 Ondansetron HCl (Zofran) 4 mg 1X ONCE IV Last administered on 05/10/18at 08:52 ; Start 05/10/18 at 09:00; Stop 05/10/18 at 09:01; Status DC Ondansetron HCl (Zofran) 4 mg STK-MED ONCE .ROUTE ; Start 05/10/18 at 08:50; Stop 05/10/18 at 08:51; Status DC Sodium Chloride 1,000 ml @ 1,000 mls/hr 1X ONCE IV Last administered on at 09:00; Start 05/10/18 at 09:00; Stop 05/10/18 at 09:59; Status DC Heparin Sodium (Porcine) (HEPARIN for NUC MED) 100 unit 1X ONCE IV ; Start at 09:45; Stop 05/10/18 at 09:53; Status DC Active Scripts Active Reported Carvedilol (Carvedilol) 6.25 Mg Tablet 6.25 Mg PO BIDWMEALS PRN Vitals/I & O Vital Sign - Last 24 Hours 05/10/18 05/10/18 05/10/18 05/10/18 05:40 06:28 07:00 07:30 Temp 97.4 97.4 Pulse 80 81 76 78 Resp 20 20 B/P (MAP) 196/95 (128) 176/92 (120) 199/95 (129) 219/100 (139) Pulse Ox 97 96 97 98 O2 Delivery Room Air Room Air Room Air Room Air 05/10/18 05/10/18 05/10/18 05/10/18 08:00 08:12 08:29 09:00 Pulse 78 80 86 78 B/P (MAP) 200/101 (134) 200/101 161/83 (109) 148/77 (100) Pulse Ox 97 99 99 O2 Delivery Room Air Room Air Room Air SIERRA JAY MD May 10, 2018 10:04
[2018-05-10 10:54] LABS: HEMATOCRIT 27.8 % (36.0-47.0); HEMOGLOBIN 8.5 g/dL (12.0-15.5); RED BLOOD COUNT 3.79 x10^6/uL (3.50-5.40); RED CELL DISTRIBUTION WIDTH 15.8 % (11.5-14.5); WHITE BLOOD COUNT 6.1 x10^3/uL (4.0-11.0)
--- NOTE | 2018-05-10 11:00 | NUR ---
Before transporting patient to [facility], patient had bright red blood saturated and pooled blood brief that spilled onto the joel and up the patients back. Within the blood were several clots.
--- NOTE | 2018-05-10 11:09 | PDOC2 ---
SHIMA BEAVERS CLINICAL SCIENCE CONSULTANT 05/10/18 1109: CARDIAC CONSULT DATE OF CONSULT Date of Consult DATE: 05/10/18 TIME: 11:00 REASON FOR CONSULT Reason for Consult: Accelerated hypertension REFERRING PHYSICIAN Referring Physician: Dr. Miller SOURCE Source: Chart review, Patient HISTORY OF PRESENT ILLNESS HISTORY OF PRESENT ILLNESS This is a 72 yo female who presented with secondary to acute rectal bleeding. Began about 11:00pm last night. Had a large amount of rectal bleeding and came to the ED for further evaluation and treatment. BP noted to be elevated, which prompted this consult. Patient denies any chest pain, palpitations, SARAH, dizziness, diaphoresis, or nausea/vomiting. Does report some chronic shortness of breath with exertion. Has had bilateral LE edema for the last couple of weeks. No orthopnea/or PND. PAST MEDICAL HISTORY Cardiovascular: HTN Pulmonary: No pertinent hx CENTRAL NERVOUS SYSTEM: Other (no pertinent hx) GI: Diverticulosis, Hemorrhoids Heme/Onc: No pertinent hx Hepatobiliary: No pertinent hx Psych: No pertinent hx Musculoskeletal: Osteoarthritis Rheumatologic: No pertinent hx Infectious disease: No pertinent hx ENT: No pertinent hx Renal/: No pertinent hx Endocrine: No pertinent hx Dermatology: No pertinent hx PAST SURGICAL HISTORY Past Surgical History: No pertinent history FAMILY HISTORY Family History: Hypertension SOCIAL HISTORY Smoke: Quit ( week ago) ALCOHOL: none Drugs: None Lives: Alone CURRENT MEDICATIONS CURRENT MEDICATIONS Current Medications Medications (Trade) Dose Ordered Sig/Madeleine Route PRN Reason Start Time Stop Time Status Last Admin Dose Admin Sodium Chloride 500 ml @ 500 mls/hr Q1H IV 05/10/18 06:30 05/10/18 06:37 DC 05/10/18 06:36 Pantoprazole Sodium (PROTONIX VIAL for IV PUSH) 40 mg 1X ONCE IVP 05/10/18 06:30 05/10/18 06:31 DC 05/10/18 06:36 Hydralazine HCl (Apresoline Inj) 10 mg 1X ONCE IVP 05/10/18 08:00 05/10/18 08:01 DC 05/10/18 08:12 Sodium Chloride 1,000 ml @ 100 mls/hr Q10H IV 05/10/18 08:02 05/11/18 08:01 05/10/18 09:31 Pantoprazole Sodium 80 mg/ Sodium Chloride 100 ml @ 10 mls/hr Q10H IV 05/10/18 08:15 05/10/18 09:23 Ondansetron HCl (Zofran) 4 mg 1X ONCE IV 05/10/18 09:00 05/10/18 09:01 DC 05/10/18 08:52 Sodium Chloride 1,000 ml @ 1,000 mls/hr 1X ONCE IV 05/10/18 09:00 05/10/18 09:59 DC 05/10/18 09:00 ALLERGIES ALLERGIES: Coded Allergies: No Known Drug Allergies (Unverified , 05/10/18) ROS Review of System 14 point ROS conducted with pertinent positives noted above in HPI. PHYSICAL EXAM General: Alert, Oriented X3, Cooperative, No acute distress HEENT: Atraumatic, Mucous membr. moist/pink Lungs: Clear to auscultation, Normal air movement Heart: Regular rate, Normal S1, Normal S2, Other (2/6 systolic murmur ) Abdomen: Soft, No tenderness Extremities: Normal pulses, Other (1+ bilateral LE edema ) Skin: No significant lesion Neuro: Normal speech, Sensation intact Psych/Mental Status: Mental status NL, Mood NL MUSCULOSKELETAL: Osteoarthritic changes both hands VITALS VITALS Vital Signs Date Time Temp Pulse Resp B/P (MAP) Pulse Ox O2 Delivery O2 Flow Rate FiO2 05/10/18 09:00 78 148/77 (100) 99 Room Air 05/10/18 06:28 20 05/10/18 05:40 97.4 97.4 LABS Lab: Laboratory Tests Test 05/10/18 06:25 05/10/18 07:35 05/10/18 10:35 White Blood Count 5.9 x10^3/uL (4.0-11.0) 6.1 x10^3/uL (4.0-11.0) Red Blood Count 4.86 x10^6/uL (3.50-5.40) 3.79 x10^6/uL (3.50-5.40) Hemoglobin 11.0 g/dL (12.0-15.5) 8.5 g/dL (12.0-15.5) Hematocrit 35.0 % (36.0-47.0) 27.8 % (36.0-47.0) Mean Corpuscular Volume 72 fL (79-100) 73 fL (79-100) Mean Corpuscular Hemoglobin 23 pg (25-35) 22 pg (25-35) Mean Corpuscular Hemoglobin Concent 31 g/dL (31-37) 31 g/dL (31-37) Red Cell Distribution Width 15.7 % (11.5-14.5) 15.8 % (11.5-14.5) Platelet Count 193 x10^3/uL (140-400) 150 x10^3/uL (140-400) Neutrophils (%) (Auto) 61 % (31-73) Lymphocytes (%) (Auto) 27 % (24-48) Monocytes (%) (Auto) 9 % (0-9) Eosinophils (%) (Auto) 2 % (0-3) Basophils (%) (Auto) 1 % (0-3) Neutrophils # (Auto) 3.6 x10^3uL (1.8-7.7) Lymphocytes # (Auto) 1.6 x10^3/uL (1.0-4.8) Monocytes # (Auto) 0.5 x10^3/uL (0.0-1.1) Eosinophils # (Auto) 0.1 x10^3/uL (0.0-0.7) Basophils # (Auto) 0.1 x10^3/uL (0.0-0.2) Platelet Estimate Adequate (ADEQUATE) Anisocytosis Slight Prothrombin Time 14.2 SEC (11.7-14.0) Prothromb Time International Ratio 1.1 (0.8-1.1) Activated Partial Thromboplast Time 32 SEC (24-38) Sodium Level 141 mmol/L (136-145) Potassium Level 3.6 mmol/L (3.5-5.1) Chloride Level 106 mmol/L (98-107) Carbon Dioxide Level 25 mmol/L (21-32) Anion Gap 10 (6-14) Blood Urea Nitrogen 16 mg/dL (7-20) Creatinine 1.0 mg/dL (0.6-1.0) Estimated GFR (Cockcroft-Gault) 65.6 BUN/Creatinine Ratio 16 (6-20) Glucose Level 112 mg/dL (70-99) Calcium Level 8.5 mg/dL (8.5-10.1) Total Bilirubin 0.5 mg/dL (0.2-1.0) Aspartate Amino Transf (AST/SGOT) 43 U/L (15-37) Alanine Aminotransferase (ALT/SGPT) 30 U/L (14-59) Alkaline Phosphatase 61 U/L (46-116) Troponin I Quantitative 0.072 ng/mL (0.000-0.055) HJ-Ebz-M-Type Natriuretic Peptide 85493 pg/mL (0-124) Total Protein 7.0 g/dL (6.4-8.2) Albumin 2.8 g/dL (3.4-5.0) Albumin/Globulin Ratio 0.7 (1.0-1.7) Stool Occult Blood Positive (NEG) ASSESSMENT/PLAN ASSESSMENT/PLAN 1. Hematochezia; GI following. Bleeding scan today 2. Accelerated hypertension; better controlled 3. Elevated troponin; initial 0.072. most probably type II, demand ischemia in the setting of #2 4. Anemia; hgb drop from 11-8.5. Active bleeding in ICU Recommendations Trend troponin. Echo to assess LV systolic function Transfuse as warranted Hydralazine IV PRN while NPO. Resume Coreg when able to take PO If BP remains elevated, consider addition of lisinopril Follow GI recs KELVIN MARINELLI MD 05/10/182056: CARDIAC CONSULT ASSESSMENT/PLAN ASSESSMENT/PLAN Patient seen and examined. Agree with COMMUNICATION COORDINATOR's assessment and plan. Slightly elevated troponin level probably demand ischemia Continue workup for anemia per GI team 2D echo showed EF 45-50% with severe LVH We will consider ischemic evaluation as outpatient BP better controlled since admission Thank you for your consultation SHIMA BEAVERS APRN May 10, 2018 11:09 KELVIN MARINELLI MD May 10, 2018 20:57
[2018-05-10] MEDS ORDERED: hydrALAZINE 20 MG/ML VIAL. IVP PRN (11:15)
[2018-05-10] MEDS ORDERED: diphenhydrAMINE ORAL ELIXIR 12.5 MG/5 ML ML PO PRN (11:45)
[2018-05-10] MEDS ORDERED: diphenhydrAMINE HCL 25 MG CAPSULE PO PRN (11:45)
[2018-05-10] MEDS ORDERED: ACETAMINOPHEN 325 MG TABLET. PO PRN (11:45)
[2018-05-10 11:48] LABS: CHOLESTEROL/HDL RATIO 3.1
--- NOTE | 2018-05-10 12:20 | PDOC1 ---
History and Physical Date of Admission Date of Admission DATE: 05/10/18 TIME: 12:17 History of Present Illness History of Present Illness seen in ER 0850, pt slightly confused, presented with BRBPR, accel htn in ER, did not complain of pain BP better over 2 hours, concern for blood loss, Past Medical History Cardiovascular: HTN GI: Diverticulosis Past Surgical History Past Surgical History: No pertinent history Family History Family History: Other (noncontributory to current illness ) Social History Smoke: No ALCOHOL: rare Drugs: None Current Problem List Problem List Problems Medical Problems: (1) CHF (congestive heart failure) Status: Acute (2) Elevated troponin I level Status: Acute (3) Hypertensive urgency Status: Acute (4) Lower GI bleeding Status: Acute Current Medications Current Medications Current Medications Sodium Chloride 500 ml @ 500 mls/hr Q1H IV Last administered on 05/10/18at 06: 36; Start 05/10/18 at 06:30; Stop 05/10/18 at 06:37; Status DC Pantoprazole Sodium (PROTONIX VIAL for IV PUSH) 40 mg 1X ONCE IVP Last administered on 05/10/18at 06:36; Start 05/10/18 at 06:30; Stop 05/10/18 at 06:31 ; Status DC Hydralazine HCl (Apresoline Inj) 10 mg 1X ONCE IVP Last administered on at 08:12; Start 05/10/18 at 08:00; Stop 05/10/18 at 08:01; Status DC Amlodipine Besylate (Norvasc) 5 mg DAILY PO ; Start 05/10/18 at 09:00 Sodium Chloride 1,000 ml @ 100 mls/hr Q10H IV Last administered on 05/10/18at 09:31; Start 05/10/18 at 08:02; Stop 05/11/18 at 08:01 Pantoprazole Sodium 80 mg/ Sodium Chloride 100 ml @ 10 mls/hr Q10H IV Last administered on 05/10/18at 09:23; Start 05/10/18 at 08:15 Ondansetron HCl (Zofran) 4 mg 1X ONCE IV Last administered on 05/10/18at 08:52 ; Start 05/10/18 at 09:00; Stop 05/10/18 at 09:01; Status DC Ondansetron HCl (Zofran) 4 mg STK-MED ONCE .ROUTE ; Start 05/10/18 at 08:50; Stop 05/10/18 at 08:51; Status DC Sodium Chloride 1,000 ml @ 1,000 mls/hr 1X ONCE IV Last administered on at 09:00; Start 05/10/18 at 09:00; Stop 05/10/18 at 09:59; Status DC Heparin Sodium (Porcine) (HEPARIN for NUC MED) 100 unit 1X ONCE IV ; Start at 09:45; Stop 05/10/18 at 09:53; Status DC Hydralazine HCl (Apresoline Inj) 10 mg PRN Q4HRS PRN IVP ELEVATED BP, SEE COMMENTS; Start 05/10/18 at 11:15 Acetaminophen (Tylenol) 650 mg 1X PRN PRN PO PRE-TRANSFUSION; Start 05/10/18 at 11:45; Stop 05/10/18 at 21:00 Diphenhydramine HCl (Benadryl Oral Elixir) 12.5 mg 1X PRN PRN PO PRE- TRANSFUSION; Start 05/10/18 at 11:45; Stop 05/10/18 at 21:00 Diphenhydramine HCl (Benadryl) 25 mg PRN 1X PRN PO PRE-TRANSFUSION; Start 05/10 at 11:45; Stop 05/10/18 at 21:00 Active Scripts Active Reported Carvedilol (Carvedilol) 6.25 Mg Tablet 6.25 Mg PO BIDWMEALS PRN Allergies Allergies: Coded Allergies: No Known Drug Allergies (Unverified , 05/10/18) ROS Review of System unable, pt confused, some distress from bright blood stools Physical Exam General: Alert, Cooperative, mild distress, Other (not oriented, ) HEENT: Atraumatic, PERRLA Lungs: Clear to auscultation Heart: S1S2, RRR Abdomen: Normal bowel sounds, Soft Rectal Exam: not examined, other (bright bloody stool seen) Extremities: No cyanosis, No edema Skin: No rashes Neuro: Normal tone Psych/Mental Status: Other Vitals Vitals Vital Signs Date Time Temp Pulse Resp B/P (MAP) Pulse Ox O2 Delivery O2 Flow Rate FiO2 05/10/18 12:04 Room Air 05/10/18 12:03 58 15 119/67 (84) 95 05/10/18 05:40 97.4 97.4 Labs Labs Laboratory Tests Test 05/10/18 06:25 05/10/18 07:35 05/10/18 10:35 White Blood Count 5.9 x10^3/uL (4.0-11.0) 6.1 x10^3/uL (4.0-11.0) Red Blood Count 4.86 x10^6/uL (3.50-5.40) 3.79 x10^6/uL (3.50-5.40) Hemoglobin 11.0 g/dL (12.0-15.5) 8.5 g/dL (12.0-15.5) Hematocrit 35.0 % (36.0-47.0) 27.8 % (36.0-47.0) Mean Corpuscular Volume 72 fL (79-100) 73 fL (79-100) Mean Corpuscular Hemoglobin 23 pg (25-35) 22 pg (25-35) Mean Corpuscular Hemoglobin Concent 31 g/dL (31-37) 31 g/dL (31-37) Red Cell Distribution Width 15.7 % (11.5-14.5) 15.8 % (11.5-14.5) Platelet Count 193 x10^3/uL (140-400) 150 x10^3/uL (140-400) Neutrophils (%) (Auto) 61 % (31-73) Lymphocytes (%) (Auto) 27 % (24-48) Monocytes (%) (Auto) 9 % (0-9) Eosinophils (%) (Auto) 2 % (0-3) Basophils (%) (Auto) 1 % (0-3) Neutrophils # (Auto) 3.6 x10^3uL (1.8-7.7) Lymphocytes # (Auto) 1.6 x10^3/uL (1.0-4.8) Monocytes # (Auto) 0.5 x10^3/uL (0.0-1.1) Eosinophils # (Auto) 0.1 x10^3/uL (0.0-0.7) Basophils # (Auto) 0.1 x10^3/uL (0.0-0.2) Platelet Estimate Adequate (ADEQUATE) Anisocytosis Slight Prothrombin Time 14.2 SEC (11.7-14.0) Prothromb Time International Ratio 1.1 (0.8-1.1) Activated Partial Thromboplast Time 32 SEC (24-38) Sodium Level 141 mmol/L (136-145) Potassium Level 3.6 mmol/L (3.5-5.1) Chloride Level 106 mmol/L (98-107) Carbon Dioxide Level 25 mmol/L (21-32) Anion Gap 10 (6-14) Blood Urea Nitrogen 16 mg/dL (7-20) Creatinine 1.0 mg/dL (0.6-1.0) Estimated GFR (Cockcroft-Gault) 65.6 BUN/Creatinine Ratio 16 (6-20) Glucose Level 112 mg/dL (70-99) Calcium Level 8.5 mg/dL (8.5-10.1) Total Bilirubin 0.5 mg/dL (0.2-1.0) Aspartate Amino Transf (AST/SGOT) 43 U/L (15-37) Alanine Aminotransferase (ALT/SGPT) 30 U/L (14-59) Alkaline Phosphatase 61 U/L (46-116) Troponin I Quantitative 0.072 ng/mL (0.000-0.055) 0.038 ng/mL (0.000-0.055) VF-Fsz-M-Type Natriuretic Peptide 86305 pg/mL (0-124) Total Protein 7.0 g/dL (6.4-8.2) Albumin 2.8 g/dL (3.4-5.0) Albumin/Globulin Ratio 0.7 (1.0-1.7) Triglycerides Level 101 mg/dL (0-150) Cholesterol Level 136 mg/dL (0-200) LDL Cholesterol, Calculated 72 mg/dL (0-100) VLDL Cholesterol, Calculated 20 mg/dL (0-40) Non-HDL Cholesterol Calculated 92 mg/dL (0-129) HDL Cholesterol 44 mg/dL (40-60) Cholesterol/HDL Ratio 3.1 Stool Occult Blood Positive (NEG) Laboratory Tests Test 05/10/18 06:25 05/10/18 07:35 05/10/18 10:35 White Blood Count 5.9 x10^3/uL (4.0-11.0) 6.1 x10^3/uL (4.0-11.0) Red Blood Count 4.86 x10^6/uL (3.50-5.40) 3.79 x10^6/uL (3.50-5.40) Hemoglobin 11.0 g/dL (12.0-15.5) 8.5 g/dL (12.0-15.5) Hematocrit 35.0 % (36.0-47.0) 27.8 % (36.0-47.0) Mean Corpuscular Volume 72 fL (79-100) 73 fL (79-100) Mean Corpuscular Hemoglobin 23 pg (25-35) 22 pg (25-35) Mean Corpuscular Hemoglobin Concent 31 g/dL (31-37) 31 g/dL (31-37) Red Cell Distribution Width 15.7 % (11.5-14.5) 15.8 % (11.5-14.5) Platelet Count 193 x10^3/uL (140-400) 150 x10^3/uL (140-400) Neutrophils (%) (Auto) 61 % (31-73) Lymphocytes (%) (Auto) 27 % (24-48) Monocytes (%) (Auto) 9 % (0-9) Eosinophils (%) (Auto) 2 % (0-3) Basophils (%) (Auto) 1 % (0-3) Neutrophils # (Auto) 3.6 x10^3uL (1.8-7.7) Lymphocytes # (Auto) 1.6 x10^3/uL (1.0-4.8) Monocytes # (Auto) 0.5 x10^3/uL (0.0-1.1) Eosinophils # (Auto) 0.1 x10^3/uL (0.0-0.7) Basophils # (Auto) 0.1 x10^3/uL (0.0-0.2) Platelet Estimate Adequate (ADEQUATE) Anisocytosis Slight Prothrombin Time 14.2 SEC (11.7-14.0) Prothromb Time International Ratio 1.1 (0.8-1.1) Activated Partial Thromboplast Time 32 SEC (24-38) Sodium Level 141 mmol/L (136-145) Potassium Level 3.6 mmol/L (3.5-5.1) Chloride Level 106 mmol/L (98-107) Carbon Dioxide Level 25 mmol/L (21-32) Anion Gap 10 (6-14) Blood Urea Nitrogen 16 mg/dL (7-20) Creatinine 1.0 mg/dL (0.6-1.0) Estimated GFR (Cockcroft-Gault) 65.6 BUN/Creatinine Ratio 16 (6-20) Glucose Level 112 mg/dL (70-99) Calcium Level 8.5 mg/dL (8.5-10.1) Total Bilirubin 0.5 mg/dL (0.2-1.0) Aspartate Amino Transf (AST/SGOT) 43 U/L (15-37) Alanine Aminotransferase (ALT/SGPT) 30 U/L (14-59) Alkaline Phosphatase 61 U/L (46-116) Troponin I Quantitative 0.072 ng/mL (0.000-0.055) 0.038 ng/mL (0.000-0.055) AY-Sbg-H-Type Natriuretic Peptide 13555 pg/mL (0-124) Total Protein 7.0 g/dL (6.4-8.2) Albumin 2.8 g/dL (3.4-5.0) Albumin/Globulin Ratio 0.7 (1.0-1.7) Triglycerides Level 101 mg/dL (0-150) Cholesterol Level 136 mg/dL (0-200) LDL Cholesterol, Calculated 72 mg/dL (0-100) VLDL Cholesterol, Calculated 20 mg/dL (0-40) Non-HDL Cholesterol Calculated 92 mg/dL (0-129) HDL Cholesterol 44 mg/dL (40-60) Cholesterol/HDL Ratio 3.1 Stool Occult Blood Positive (NEG) VTE Prophylaxis Ordered VTE Prophylaxis Devices: No VTE Pharmacological Prophylaxi: Contraindicated Assessment/Plan Assessment/Plan acute encephalopathy NOS GI bleed, acute blood loss anemia bright red blood per rectum Accelerated htn admit to ICU gen surg, IR, GI Time > 35 min 3 visits' SIERRA JAY MD May 10, 2018 12:20
--- NOTE | 2018-05-10 12:35 | RAD ---
Tagged red blood cell scan 05/10/2018 INDICATION: Lower GI bleed COMPARISON STUDY: None Discussion: Imaging over the abdomen was performed following the administration of the patient's own red blood cells labeled with 32 mCi of technetium 99m (UltraTag). Imaging over the abdomen was continued for a minimum of one hour. No abnormal accumulation of radiotracer suggestive of active gastrointestinal hemorrhage is identified. IMPRESSION: No scintigraphic evidence of active gastrointestinal hemorrhage is identified Electronically signed by: Brendon Wright MD (05/10/2018 12:32 PM) [id number]
[2018-05-10] MEDS ORDERED: NICO4LOZ93 PO (13:47)
[2018-05-10] MEDS ORDERED: TRIA1TAB3 PO (13:47)
--- NOTE | 2018-05-10 14:04 | CARD ---
MR#: [id number] Date of Study: 05/10/2018 Ordering Physician: SHIMA BEAVERS, Referring Physician: SIERRA JAY Tech: Kim Garza RDCS APPROVED REPORT EXAM: Two-dimensional and M-mode echocardiogram with Doppler and color Doppler. Other Information Quality : Good INDICATION Elevated Troponin 2D DIMENSIONS RVDd2.2 (2.9-3.5cm)Left Atrium(2D)3.6 (1.6-4.0cm) IVSd2.7 (0.7-1.1cm)Aortic Root(2D)3.1 (2.0-3.7cm) LVDd3.8 (3.9-5.9cm)LVOT Diameter2.1 (1.8-2.4cm) PWd2.0 (0.7-1.1cm)LVDs2.8 (2.5-4.0cm) FS (%) 22.8 %SV24.9 ml LVEF(%)46.8 (>50%) Aortic Valve AoV Peak Giovanni.117.3cm/sAoV VTI17.4cm AO Peak GR.5.5mmHgLVOT VTI 17.97cm AO Mean GR.3mmHgAVA (VTI)3.40cm2 AI P 1/2 [id number] Mitral Valve MV E Pviukarz55.8cm/sMV DECEL [id number] MV A Fulgqnbf90.4cm/sE/A Ratio0.9 TDI Lateral E' P. V6.76cm/sMedial E' P. V4.44cm/s E/Lateral E'8.1E/Medial E'12.3 Pulmonary Vein S1 Azjzmzjr69.8cm/sS2 Qtijexds37.46cm/s D2 Ozagmjdg34.5cm/s LEFT VENTRICLE The left ventricle is normal size. There is severe concentric left ventricular hypertrophy. Consider infiltrative diseases Left ventricle systolic function is mildly impaired. The Ejection Fraction is 4 5-50%. There is moderate hypokinesis in the basal inferior wall. Transmitral Doppler flow pattern is Grade I-abnormal relaxation pattern. RIGHT VENTRICLE The right ventricle is normal size. The right ventricle is mildly to moderately hypertrophied. The ri ght ventricular systolic function is normal. ATRIA The left atrium is moderately dilated. The right atrium size is normal. The interatrial septum is int act with no evidence for an atrial septal defect or patent foramen ovale as noted on 2-D or Doppler i maging. AORTIC VALVE The aortic valve is calcified but opens well. Doppler and Color Flow revealed trace aortic regurgitat ion. There is no significant aortic valvular stenosis. MITRAL VALVE The mitral valve is calcified but opens well. Mitral annular calcification is mild. There is no evide nce of mitral valve prolapse. There is no mitral valve stenosis. Doppler and Color-flow revealed trac e mitral regurgitation. TRICUSPID VALVE The tricuspid valve is normal in structure and function. Doppler and Color Flow revealed no tricuspid valve regurgitation noted. There is no tricuspid valve stenosis. PULMONIC VALVE Doppler and Color Flow revealed trace pulmonic valvular regurgitation. There is no pulmonic valvular stenosis. GREAT VESSELS The aortic root is normal in size. The ascending aorta is mildly dilated at 3.5 cm. The IVC is normal in size and collapses >50% with inspiration. PERICARDIAL EFFUSION There is a small circumferential pericardial effusion. No obvious tamponade physiology noted Critical Notification Critical Value: No <Conclusion> Left ventricle systolic function is mildly impaired. The Ejection Fraction is 45-50%. There is severe concentric left ventricular hypertrophy. Consider infiltrative diseases There is a small circumferential pericardial effusion. No obvious tamponade physiology noted Signed by : Wilder Clemens, Electronically Approved : 05/10/2018 14:03:46
--- NOTE | 2018-05-10 14:46 | PDOC ---
Provider Note Provider Note IR NOTE consulted for lower GI bleed. Hb 11 to 8.5 . Hx of diverticular disease with colonoscopy nearly a decade ago showed significant diverticular disease. Tagged scan negative. Angiography generally ineffective in this setting. If patient has clinical evidence of significant re-bleed, CTA may be helpful. EMELY CRESPO MD May 10, 2018 14:46
[2018-05-10 16:47] LABS: BASO % 1 % (0-3); EOS % 0 % (0-3); HEMATOCRIT 29.8 % (36.0-47.0); HEMOGLOBIN 9.7 g/dL (12.0-15.5); LYMPH # 1.4 x10^3/uL (1.0-4.8); LYMPH % 20 % (24-48); MEAN CORPUSCULAR HEMOGLOBIN 24 pg (25-35); MEAN CORPUSCULAR HGB CONC 33 g/dL (31-37); MEAN CORPUSCULAR VOLUME 73 fL (79-100); MONO # 0.5 x10^3/uL (0.0-1.1); MONO % 7 % (0-9); NEUT # 5.1 x10^3uL (1.8-7.7); NEUT % 72 % (31-73); PLATELET COUNT 142 x10^3/uL (140-400); RED BLOOD COUNT 4.06 x10^6/uL (3.50-5.40); RED CELL DISTRIBUTION WIDTH 16.1 % (11.5-14.5); WHITE BLOOD COUNT 7.1 x10^3/uL (4.0-11.0)
[2018-05-10 20:01] LABS: BASO % 1 % (0-3); EOS % 0 % (0-3); HEMATOCRIT 31.8 % (36.0-47.0); HEMOGLOBIN 10.3 g/dL (12.0-15.5); LYMPH # 1.8 x10^3/uL (1.0-4.8); LYMPH % 20 % (24-48); MEAN CORPUSCULAR HEMOGLOBIN 24 pg (25-35); MEAN CORPUSCULAR HGB CONC 32 g/dL (31-37); MEAN CORPUSCULAR VOLUME 74 fL (79-100); MONO # 0.9 x10^3/uL (0.0-1.1); MONO % 10 % (0-9); NEUT # 6.2 x10^3uL (1.8-7.7); NEUT % 69 % (31-73); PLATELET COUNT 142 x10^3/uL (140-400); RED BLOOD COUNT 4.28 x10^6/uL (3.50-5.40); RED CELL DISTRIBUTION WIDTH 16.8 % (11.5-14.5)
[2018-05-11] VITALS (14 sets, daily range): BP systolic 129–176; BP diastolic 60–102
[2018-05-11] MEDS: IV NORMAL SALINE 1000ML BAG 1,000 ML IV SCH (04:02)
[2018-05-11 04:56] LABS: BASO # 0.1 x10^3/uL (0.0-0.2); BASO % 1 % (0-3); EOS # 0.1 x10^3/uL (0.0-0.7); EOS % 1 % (0-3); HEMATOCRIT 28.7 % (36.0-47.0); HEMOGLOBIN 9.2 g/dL (12.0-15.5); LYMPH # 2.2 x10^3/uL (1.0-4.8); LYMPH % 22 % (24-48); MEAN CORPUSCULAR HEMOGLOBIN 24 pg (25-35); MEAN CORPUSCULAR HGB CONC 32 g/dL (31-37); MEAN CORPUSCULAR VOLUME 74 fL (79-100); MONO % 10 % (0-9); NEUT # 6.6 x10^3uL (1.8-7.7); NEUT % 66 % (31-73); PLATELET COUNT 139 x10^3/uL (140-400); RED BLOOD COUNT 3.89 x10^6/uL (3.50-5.40); RED CELL DISTRIBUTION WIDTH 16.8 % (11.5-14.5)
[2018-05-11 05:25] LABS: ALBUMIN 2.2 g/dL (3.4-5.0); ALBUMIN/GLOBULIN RATIO 0.6 (1.0-1.7); CALCIUM 7.8 mg/dL (8.5-10.1); CREATININE 1.1 mg/dL (0.6-1.0); GFR 58.7; POTASSIUM 3.5 mmol/L (3.5-5.1); TOTAL BILIRUBIN 0.8 mg/dL (0.2-1.0); TOTAL PROTEIN 5.7 g/dL (6.4-8.2)
--- NOTE | 2018-05-11 09:12 | PDOC ---
Subjective: Subjective: No bleeding, no pain. On ice chips. Objective: Vital Signs: Vital Signs Date Time Temp Pulse Resp B/P (MAP) Pulse Ox O2 Delivery O2 Flow Rate FiO2 05/11/18 06:16 98.2 85 18 135/71 (92) 97 Room Air 98.2 Labs: Laboratory Tests Test 05/10/18 09:27 05/10/18 10:35 05/10/18 14:00 05/10/18 16:22 Nasal Screen MRSA (PCR) Negative White Blood Count 6.1 x10^3/uL 7.1 x10^3/uL Red Blood Count 3.79 x10^6/uL 4.06 x10^6/uL Hemoglobin 8.5 g/dL 9.7 g/dL Hematocrit 27.8 % 29.8 % Mean Corpuscular Volume 73 fL 73 fL Mean Corpuscular Hemoglobin 22 pg 24 pg Mean Corpuscular Hemoglobin Concent 31 g/dL 33 g/dL Red Cell Distribution Width 15.8 % 16.1 % Platelet Count 150 x10^3/uL 142 x10^3/uL Troponin I Quantitative 0.038 ng/mL 0.092 ng/mL Neutrophils (%) (Auto) 72 % Lymphocytes (%) (Auto) 20 % Monocytes (%) (Auto) 7 % Eosinophils (%) (Auto) 0 % Basophils (%) (Auto) 1 % Neutrophils # (Auto) 5.1 x10^3uL Lymphocytes # (Auto) 1.4 x10^3/uL Monocytes # (Auto) 0.5 x10^3/uL Eosinophils # (Auto) 0.0 x10^3/uL Basophils # (Auto) 0.0 x10^3/uL Test 05/10/18 19:30 05/11/18 04:40 White Blood Count 9.0 x10^3/uL 10.0 x10^3/uL Red Blood Count 4.28 x10^6/uL 3.89 x10^6/uL Hemoglobin 10.3 g/dL 9.2 g/dL Hematocrit 31.8 % 28.7 % Mean Corpuscular Volume 74 fL 74 fL Mean Corpuscular Hemoglobin 24 pg 24 pg Mean Corpuscular Hemoglobin Concent 32 g/dL 32 g/dL Red Cell Distribution Width 16.8 % 16.8 % Platelet Count 142 x10^3/uL 139 x10^3/uL Neutrophils (%) (Auto) 69 % 66 % Lymphocytes (%) (Auto) 20 % 22 % Monocytes (%) (Auto) 10 % 10 % Eosinophils (%) (Auto) 0 % 1 % Basophils (%) (Auto) 1 % 1 % Neutrophils # (Auto) 6.2 x10^3uL 6.6 x10^3uL Lymphocytes # (Auto) 1.8 x10^3/uL 2.2 x10^3/uL Monocytes # (Auto) 0.9 x10^3/uL 1.0 x10^3/uL Eosinophils # (Auto) 0.0 x10^3/uL 0.1 x10^3/uL Basophils # (Auto) 0.0 x10^3/uL 0.1 x10^3/uL Sodium Level 144 mmol/L Potassium Level 3.5 mmol/L Chloride Level 111 mmol/L Carbon Dioxide Level 24 mmol/L Anion Gap 9 Blood Urea Nitrogen 16 mg/dL Creatinine 1.1 mg/dL Estimated GFR (Cockcroft-Gault) 58.7 BUN/Creatinine Ratio 15 Glucose Level 100 mg/dL Calcium Level 7.8 mg/dL Total Bilirubin 0.8 mg/dL Aspartate Amino Transf (AST/SGOT) 42 U/L Alanine Aminotransferase (ALT/SGPT) 31 U/L Alkaline Phosphatase 43 U/L Total Protein 5.7 g/dL Albumin 2.2 g/dL Albumin/Globulin Ratio 0.6 Imaging: GI Bleed IMPRESSION: No scintigraphic evidence of active gastrointestinal hemorrhage is identified. Echo <Conclusion> Left ventricle systolic function is mildly impaired. The Ejection Fraction is 45 -50%. There is severe concentric left ventricular hypertrophy. Consider infiltrative diseases There is a small circumferential pericardial effusion. No obvious tamponade physiology noted PE: GEN: NAD LUNGS: CTAB HEART: RRR ABD: NABS, S/ND/NT NEURO/PSYCH: A & O 3 A/P: Probable diverticular bleed -- No further bleeding, Hgb stable w/ transfusions. Reviewed w/ Dr. Buchanan - can try clears. Change from PPI drip to PO. MAX DE JESUS May 11, 2018 09:12
--- NOTE | 2018-05-11 09:42 | PDOC ---
JASON GRAY [employer] TECHNICIAN 05/11/18 0942: SURGICAL PROGRESS NOTE Subjective denies pain no n/v no further bleeding Vital Signs Vital Signs Date Time Temp Pulse Resp B/P (MAP) Pulse Ox O2 Delivery O2 Flow Rate FiO2 05/11/18 06:16 98.2 85 18 135/71 (92) 97 Room Air 98.2 I&O Intake and Output 05/11/18 07:00 Intake Total 2650 ml Output Total 0 ml Balance 2650 ml Intake Oral 220 ml IV Total 500 ml Blood Product IV Normal Saline Flush 1930 ml Output Urine Total 0 ml # Voids 1 General: Alert, Oriented X3, Cooperative, No acute distress Abdomen: Soft, No tenderness Labs Laboratory Tests Test 05/10/18 06:25 05/10/18 07:35 05/10/18 09:27 05/10/18 10:35 White Blood Count 5.9 x10^3/uL (4.0-11.0) 6.1 x10^3/uL (4.0-11.0) Red Blood Count 4.86 x10^6/uL (3.50-5.40) 3.79 x10^6/uL (3.50-5.40) Hemoglobin 11.0 g/dL (12.0-15.5) 8.5 g/dL (12.0-15.5) Hematocrit 35.0 % (36.0-47.0) 27.8 % (36.0-47.0) Mean Corpuscular Volume 72 fL (79-100) 73 fL (79-100) Mean Corpuscular Hemoglobin 23 pg (25-35) 22 pg (25-35) Mean Corpuscular Hemoglobin Concent 31 g/dL (31-37) 31 g/dL (31-37) Red Cell Distribution Width 15.7 % (11.5-14.5) 15.8 % (11.5-14.5) Platelet Count 193 x10^3/uL (140-400) 150 x10^3/uL (140-400) Neutrophils (%) (Auto) 61 % (31-73) Lymphocytes (%) (Auto) 27 % (24-48) Monocytes (%) (Auto) 9 % (0-9) Eosinophils (%) (Auto) 2 % (0-3) Basophils (%) (Auto) 1 % (0-3) Neutrophils # (Auto) 3.6 x10^3uL (1.8-7.7) Lymphocytes # (Auto) 1.6 x10^3/uL (1.0-4.8) Monocytes # (Auto) 0.5 x10^3/uL (0.0-1.1) Eosinophils # (Auto) 0.1 x10^3/uL (0.0-0.7) Basophils # (Auto) 0.1 x10^3/uL (0.0-0.2) Platelet Estimate Adequate (ADEQUATE) Anisocytosis Slight Prothrombin Time 14.2 SEC (11.7-14.0) Prothromb Time International Ratio 1.1 (0.8-1.1) Activated Partial Thromboplast Time 32 SEC (24-38) Sodium Level 141 mmol/L (136-145) Potassium Level 3.6 mmol/L (3.5-5.1) Chloride Level 106 mmol/L (98-107) Carbon Dioxide Level 25 mmol/L (21-32) Anion Gap 10 (6-14) Blood Urea Nitrogen 16 mg/dL (7-20) Creatinine 1.0 mg/dL (0.6-1.0) Estimated GFR (Cockcroft-Gault) 65.6 BUN/Creatinine Ratio 16 (6-20) Glucose Level 112 mg/dL (70-99) Calcium Level 8.5 mg/dL (8.5-10.1) Total Bilirubin 0.5 mg/dL (0.2-1.0) Aspartate Amino Transf (AST/SGOT) 43 U/L (15-37) Alanine Aminotransferase (ALT/SGPT) 30 U/L (14-59) Alkaline Phosphatase 61 U/L (46-116) Troponin I Quantitative 0.072 ng/mL (0.000-0.055) 0.038 ng/mL (0.000-0.055) BZ-Qnr-X-Type Natriuretic Peptide 94063 pg/mL (0-124) Total Protein 7.0 g/dL (6.4-8.2) Albumin 2.8 g/dL (3.4-5.0) Albumin/Globulin Ratio 0.7 (1.0-1.7) Triglycerides Level 101 mg/dL (0-150) Cholesterol Level 136 mg/dL (0-200) LDL Cholesterol, Calculated 72 mg/dL (0-100) VLDL Cholesterol, Calculated 20 mg/dL (0-40) Non-HDL Cholesterol Calculated 92 mg/dL (0-129) HDL Cholesterol 44 mg/dL (40-60) Cholesterol/HDL Ratio 3.1 Stool Occult Blood Positive (NEG) Nasal Screen MRSA (PCR) Negative (Negative) Test 05/10/18 14:00 05/10/18 16:22 05/10/18 19:30 05/11/18 04:40 Troponin I Quantitative 0.092 ng/mL (0.000-0.055) White Blood Count 7.1 x10^3/uL (4.0-11.0) 9.0 x10^3/uL (4.0-11.0) 10.0 x10^3/uL (4.0-11.0) Red Blood Count 4.06 x10^6/uL (3.50-5.40) 4.28 x10^6/uL (3.50-5.40) 3.89 x10^6/uL (3.50-5.40) Hemoglobin 9.7 g/dL (12.0-15.5) 10.3 g/dL (12.0-15.5) 9.2 g/dL (12.0-15.5) Hematocrit 29.8 % (36.0-47.0) 31.8 % (36.0-47.0) 28.7 % (36.0-47.0) Mean Corpuscular Volume 73 fL (79-100) 74 fL (79-100) 74 fL (79-100) Mean Corpuscular Hemoglobin 24 pg (25-35) 24 pg (25-35) 24 pg (25-35) Mean Corpuscular Hemoglobin Concent 33 g/dL (31-37) 32 g/dL (31-37) 32 g/dL (31-37) Red Cell Distribution Width 16.1 % (11.5-14.5) 16.8 % (11.5-14.5) 16.8 % (11.5-14.5) Platelet Count 142 x10^3/uL (140-400) 142 x10^3/uL (140-400) 139 x10^3/uL (140-400) Neutrophils (%) (Auto) 72 % (31-73) 69 % (31-73) 66 % (31-73) Lymphocytes (%) (Auto) 20 % (24-48) 20 % (24-48) 22 % (24-48) Monocytes (%) (Auto) 7 % (0-9) 10 % (0-9) 10 % (0-9) Eosinophils (%) (Auto) 0 % (0-3) 0 % (0-3) 1 % (0-3) Basophils (%) (Auto) 1 % (0-3) 1 % (0-3) 1 % (0-3) Neutrophils # (Auto) 5.1 x10^3uL (1.8-7.7) 6.2 x10^3uL (1.8-7.7) 6.6 x10^3uL (1.8-7.7) Lymphocytes # (Auto) 1.4 x10^3/uL (1.0-4.8) 1.8 x10^3/uL (1.0-4.8) 2.2 x10^3/uL (1.0-4.8) Monocytes # (Auto) 0.5 x10^3/uL (0.0-1.1) 0.9 x10^3/uL (0.0-1.1) 1.0 x10^3/uL (0.0-1.1) Eosinophils # (Auto) 0.0 x10^3/uL (0.0-0.7) 0.0 x10^3/uL (0.0-0.7) 0.1 x10^3/uL (0.0-0.7) Basophils # (Auto) 0.0 x10^3/uL (0.0-0.2) 0.0 x10^3/uL (0.0-0.2) 0.1 x10^3/uL (0.0-0.2) Sodium Level 144 mmol/L (136-145) Potassium Level 3.5 mmol/L (3.5-5.1) Chloride Level 111 mmol/L (98-107) Carbon Dioxide Level 24 mmol/L (21-32) Anion Gap 9 (6-14) Blood Urea Nitrogen 16 mg/dL (7-20) Creatinine 1.1 mg/dL (0.6-1.0) Estimated GFR (Cockcroft-Gault) 58.7 BUN/Creatinine Ratio 15 (6-20) Glucose Level 100 mg/dL (70-99) Calcium Level 7.8 mg/dL (8.5-10.1) Total Bilirubin 0.8 mg/dL (0.2-1.0) Aspartate Amino Transf (AST/SGOT) 42 U/L (15-37) Alanine Aminotransferase (ALT/SGPT) 31 U/L (14-59) Alkaline Phosphatase 43 U/L (46-116) Total Protein 5.7 g/dL (6.4-8.2) Albumin 2.2 g/dL (3.4-5.0) Albumin/Globulin Ratio 0.6 (1.0-1.7) Laboratory Tests Test 05/10/18 10:35 05/10/18 14:00 05/10/18 16:22 05/10/18 19:30 White Blood Count 6.1 x10^3/uL (4.0-11.0) 7.1 x10^3/uL (4.0-11.0) 9.0 x10^3/uL (4.0-11.0) Red Blood Count 3.79 x10^6/uL (3.50-5.40) 4.06 x10^6/uL (3.50-5.40) 4.28 x10^6/uL (3.50-5.40) Hemoglobin 8.5 g/dL (12.0-15.5) 9.7 g/dL (12.0-15.5) 10.3 g/dL (12.0-15.5) Hematocrit 27.8 % (36.0-47.0) 29.8 % (36.0-47.0) 31.8 % (36.0-47.0) Mean Corpuscular Volume 73 fL (79-100) 73 fL (79-100) 74 fL (79-100) Mean Corpuscular Hemoglobin 22 pg (25-35) 24 pg (25-35) 24 pg (25-35) Mean Corpuscular Hemoglobin Concent 31 g/dL (31-37) 33 g/dL (31-37) 32 g/dL (31-37) Red Cell Distribution Width 15.8 % (11.5-14.5) 16.1 % (11.5-14.5) 16.8 % (11.5-14.5) Platelet Count 150 x10^3/uL (140-400) 142 x10^3/uL (140-400) 142 x10^3/uL (140-400) Troponin I Quantitative 0.038 ng/mL (0.000-0.055) 0.092 ng/mL (0.000-0.055) Neutrophils (%) (Auto) 72 % (31-73) 69 % (31-73) Lymphocytes (%) (Auto) 20 % (24-48) 20 % (24-48) Monocytes (%) (Auto) 7 % (0-9) 10 % (0-9) Eosinophils (%) (Auto) 0 % (0-3) 0 % (0-3) Basophils (%) (Auto) 1 % (0-3) 1 % (0-3) Neutrophils # (Auto) 5.1 x10^3uL (1.8-7.7) 6.2 x10^3uL (1.8-7.7) Lymphocytes # (Auto) 1.4 x10^3/uL (1.0-4.8) 1.8 x10^3/uL (1.0-4.8) Monocytes # (Auto) 0.5 x10^3/uL (0.0-1.1) 0.9 x10^3/uL (0.0-1.1) Eosinophils # (Auto) 0.0 x10^3/uL (0.0-0.7) 0.0 x10^3/uL (0.0-0.7) Basophils # (Auto) 0.0 x10^3/uL (0.0-0.2) 0.0 x10^3/uL (0.0-0.2) Test 05/11/18 04:40 White Blood Count 10.0 x10^3/uL (4.0-11.0) Red Blood Count 3.89 x10^6/uL (3.50-5.40) Hemoglobin 9.2 g/dL (12.0-15.5) Hematocrit 28.7 % (36.0-47.0) Mean Corpuscular Volume 74 fL (79-100) Mean Corpuscular Hemoglobin 24 pg (25-35) Mean Corpuscular Hemoglobin Concent 32 g/dL (31-37) Red Cell Distribution Width 16.8 % (11.5-14.5) Platelet Count 139 x10^3/uL (140-400) Neutrophils (%) (Auto) 66 % (31-73) Lymphocytes (%) (Auto) 22 % (24-48) Monocytes (%) (Auto) 10 % (0-9) Eosinophils (%) (Auto) 1 % (0-3) Basophils (%) (Auto) 1 % (0-3) Neutrophils # (Auto) 6.6 x10^3uL (1.8-7.7) Lymphocytes # (Auto) 2.2 x10^3/uL (1.0-4.8) Monocytes # (Auto) 1.0 x10^3/uL (0.0-1.1) Eosinophils # (Auto) 0.1 x10^3/uL (0.0-0.7) Basophils # (Auto) 0.1 x10^3/uL (0.0-0.2) Sodium Level 144 mmol/L (136-145) Potassium Level 3.5 mmol/L (3.5-5.1) Chloride Level 111 mmol/L (98-107) Carbon Dioxide Level 24 mmol/L (21-32) Anion Gap 9 (6-14) Blood Urea Nitrogen 16 mg/dL (7-20) Creatinine 1.1 mg/dL (0.6-1.0) Estimated GFR (Cockcroft-Gault) 58.7 BUN/Creatinine Ratio 15 (6-20) Glucose Level 100 mg/dL (70-99) Calcium Level 7.8 mg/dL (8.5-10.1) Total Bilirubin 0.8 mg/dL (0.2-1.0) Aspartate Amino Transf (AST/SGOT) 42 U/L (15-37) Alanine Aminotransferase (ALT/SGPT) 31 U/L (14-59) Alkaline Phosphatase 43 U/L (46-116) Total Protein 5.7 g/dL (6.4-8.2) Albumin 2.2 g/dL (3.4-5.0) Albumin/Globulin Ratio 0.6 (1.0-1.7) Problem List Problems Medical Problems: (1) CHF (congestive heart failure) Status: Acute (2) Elevated troponin I level Status: Acute (3) Hypertensive urgency Status: Acute (4) Lower GI bleeding Status: Acute Assessment/Plan stable no surgical plans MIKE ROA MD 05/11/18 1524: SURGICAL PROGRESS NOTE Assessment/Plan Reviewed, Hb stable, agree with above JASON GRAY APRN May 11, 2018 09:42 MIKE ROA MD May 11, 2018 15:24
--- NOTE | 2018-05-11 10:29 | PDOC ---
PROGRESS NOTES History of Present Illness History of Present Illness Assessment Assessment acute blood loss anemia bright red blood per rectum reported by pt LICENSED AND CERTIFIED MIDWIFE No abnormal accumulation of radiotracer suggestive of active gastrointestinal hemorrhage is identified. BY /// gi bleeding scan acute GI bleed acute encephalopathy, resolved ICU discussed with ANODIZER, GI consult IR consult Angiography generally ineffective in this setting. If clinical evidence of significant re-bleed, CTA may be helpful. gen surg tagged red scan neg Angiography generally ineffective in this setting. If patient has clinical evidence of significant re-bleed, CTA may be helpful. 32 MIN CC TIME Vitals Vitals Vital Signs Date Time Temp Pulse Resp B/P (MAP) Pulse Ox O2 Delivery O2 Flow Rate FiO2 05/11/18 07:00 Room Air 05/11/18 06:16 98.2 85 18 135/71 (92) 97 98.2 Physical Exam General: Alert, Oriented X3, Cooperative, No acute distress Heart: Regular rate, Normal S1, Normal S2, No murmurs, Other (2/6 systolic murmur ) Lungs: Clear Abdomen: Normal bowel sounds, Soft, No tenderness Extremities: No cyanosis, Normal pulses, Other (1+ bilateral LE edema ) Skin: No significant lesion Labs LABS STATUS: ADM IN ORD. PHYSICIAN: MAX DE JESUS REASON: hematochezia, suspected diverticular bleed PROCEDURE: GI BLEED Tagged red blood cell scan 05/10/2018 INDICATION: Lower GI bleed COMPARISON STUDY: None Discussion: Imaging over the abdomen was performed following the administration of the patient's own red blood cells labeled with 32 mCi of technetium 99m (UltraTag). Imaging over the abdomen was continued for a minimum of one hour. No abnormal accumulation of radiotracer suggestive of active gastrointestinal hemorrhage is identified. IMPRESSION: No scintigraphic evidence of active gastrointestinal hemorrhage is identified Electronically signed by: Brendon Crespo MD (05/10/2018 12:32 PM) [id number] DICTATED and SIGNED BY: BRENDON CRESPO MD Laboratory Tests Test 05/10/18 10:35 05/10/18 14:00 05/10/18 16:22 05/10/18 19:30 White Blood Count 6.1 x10^3/uL (4.0-11.0) 7.1 x10^3/uL (4.0-11.0) 9.0 x10^3/uL (4.0-11.0) Red Blood Count 3.79 x10^6/uL (3.50-5.40) 4.06 x10^6/uL (3.50-5.40) 4.28 x10^6/uL (3.50-5.40) Hemoglobin 8.5 g/dL (12.0-15.5) 9.7 g/dL (12.0-15.5) 10.3 g/dL (12.0-15.5) Hematocrit 27.8 % (36.0-47.0) 29.8 % (36.0-47.0) 31.8 % (36.0-47.0) Mean Corpuscular Volume 73 fL (79-100) 73 fL (79-100) 74 fL (79-100) Mean Corpuscular Hemoglobin 22 pg (25-35) 24 pg (25-35) 24 pg (25-35) Mean Corpuscular Hemoglobin Concent 31 g/dL (31-37) 33 g/dL (31-37) 32 g/dL (31-37) Red Cell Distribution Width 15.8 % (11.5-14.5) 16.1 % (11.5-14.5) 16.8 % (11.5-14.5) Platelet Count 150 x10^3/uL (140-400) 142 x10^3/uL (140-400) 142 x10^3/uL (140-400) Troponin I Quantitative 0.038 ng/mL (0.000-0.055) 0.092 ng/mL (0.000-0.055) Neutrophils (%) (Auto) 72 % (31-73) 69 % (31-73) Lymphocytes (%) (Auto) 20 % (24-48) 20 % (24-48) Monocytes (%) (Auto) 7 % (0-9) 10 % (0-9) Eosinophils (%) (Auto) 0 % (0-3) 0 % (0-3) Basophils (%) (Auto) 1 % (0-3) 1 % (0-3) Neutrophils # (Auto) 5.1 x10^3uL (1.8-7.7) 6.2 x10^3uL (1.8-7.7) Lymphocytes # (Auto) 1.4 x10^3/uL (1.0-4.8) 1.8 x10^3/uL (1.0-4.8) Monocytes # (Auto) 0.5 x10^3/uL (0.0-1.1) 0.9 x10^3/uL (0.0-1.1) Eosinophils # (Auto) 0.0 x10^3/uL (0.0-0.7) 0.0 x10^3/uL (0.0-0.7) Basophils # (Auto) 0.0 x10^3/uL (0.0-0.2) 0.0 x10^3/uL (0.0-0.2) Test 05/11/18 04:40 White Blood Count 10.0 x10^3/uL (4.0-11.0) Red Blood Count 3.89 x10^6/uL (3.50-5.40) Hemoglobin 9.2 g/dL (12.0-15.5) Hematocrit 28.7 % (36.0-47.0) Mean Corpuscular Volume 74 fL (79-100) Mean Corpuscular Hemoglobin 24 pg (25-35) Mean Corpuscular Hemoglobin Concent 32 g/dL (31-37) Red Cell Distribution Width 16.8 % (11.5-14.5) Platelet Count 139 x10^3/uL (140-400) Neutrophils (%) (Auto) 66 % (31-73) Lymphocytes (%) (Auto) 22 % (24-48) Monocytes (%) (Auto) 10 % (0-9) Eosinophils (%) (Auto) 1 % (0-3) Basophils (%) (Auto) 1 % (0-3) Neutrophils # (Auto) 6.6 x10^3uL (1.8-7.7) Lymphocytes # (Auto) 2.2 x10^3/uL (1.0-4.8) Monocytes # (Auto) 1.0 x10^3/uL (0.0-1.1) Eosinophils # (Auto) 0.1 x10^3/uL (0.0-0.7) Basophils # (Auto) 0.1 x10^3/uL (0.0-0.2) Sodium Level 144 mmol/L (136-145) Potassium Level 3.5 mmol/L (3.5-5.1) Chloride Level 111 mmol/L (98-107) Carbon Dioxide Level 24 mmol/L (21-32) Anion Gap 9 (6-14) Blood Urea Nitrogen 16 mg/dL (7-20) Creatinine 1.1 mg/dL (0.6-1.0) Estimated GFR (Cockcroft-Gault) 58.7 BUN/Creatinine Ratio 15 (6-20) Glucose Level 100 mg/dL (70-99) Calcium Level 7.8 mg/dL (8.5-10.1) Total Bilirubin 0.8 mg/dL (0.2-1.0) Aspartate Amino Transf (AST/SGOT) 42 U/L (15-37) Alanine Aminotransferase (ALT/SGPT) 31 U/L (14-59) Alkaline Phosphatase 43 U/L (46-116) Total Protein 5.7 g/dL (6.4-8.2) Albumin 2.2 g/dL (3.4-5.0) Albumin/Globulin Ratio 0.6 (1.0-1.7) Assessment and Plan Assessmemt and Plan Problems Medical Problems: (1) CHF (congestive heart failure) Status: Acute (2) Elevated troponin I level Status: Acute (3) Hypertensive urgency Status: Acute (4) Lower GI bleeding Status: Acute Comment Review of Relevant I have reviewed the following items regina (where applicable) has been applied. Labs Laboratory Tests Test 05/10/18 06:25 05/10/18 07:35 05/10/18 09:27 05/10/18 10:35 White Blood Count 5.9 x10^3/uL (4.0-11.0) 6.1 x10^3/uL (4.0-11.0) Red Blood Count 4.86 x10^6/uL (3.50-5.40) 3.79 x10^6/uL (3.50-5.40) Hemoglobin 11.0 g/dL (12.0-15.5) 8.5 g/dL (12.0-15.5) Hematocrit 35.0 % (36.0-47.0) 27.8 % (36.0-47.0) Mean Corpuscular Volume 72 fL (79-100) 73 fL (79-100) Mean Corpuscular Hemoglobin 23 pg (25-35) 22 pg (25-35) Mean Corpuscular Hemoglobin Concent 31 g/dL (31-37) 31 g/dL (31-37) Red Cell Distribution Width 15.7 % (11.5-14.5) 15.8 % (11.5-14.5) Platelet Count 193 x10^3/uL (140-400) 150 x10^3/uL (140-400) Neutrophils (%) (Auto) 61 % (31-73) Lymphocytes (%) (Auto) 27 % (24-48) Monocytes (%) (Auto) 9 % (0-9) Eosinophils (%) (Auto) 2 % (0-3) Basophils (%) (Auto) 1 % (0-3) Neutrophils # (Auto) 3.6 x10^3uL (1.8-7.7) Lymphocytes # (Auto) 1.6 x10^3/uL (1.0-4.8) Monocytes # (Auto) 0.5 x10^3/uL (0.0-1.1) Eosinophils # (Auto) 0.1 x10^3/uL (0.0-0.7) Basophils # (Auto) 0.1 x10^3/uL (0.0-0.2) Platelet Estimate Adequate (ADEQUATE) Anisocytosis Slight Prothrombin Time 14.2 SEC (11.7-14.0) Prothromb Time International Ratio 1.1 (0.8-1.1) Activated Partial Thromboplast Time 32 SEC (24-38) Sodium Level 141 mmol/L (136-145) Potassium Level 3.6 mmol/L (3.5-5.1) Chloride Level 106 mmol/L (98-107) Carbon Dioxide Level 25 mmol/L (21-32) Anion Gap 10 (6-14) Blood Urea Nitrogen 16 mg/dL (7-20) Creatinine 1.0 mg/dL (0.6-1.0) Estimated GFR (Cockcroft-Gault) 65.6 BUN/Creatinine Ratio 16 (6-20) Glucose Level 112 mg/dL (70-99) Calcium Level 8.5 mg/dL (8.5-10.1) Total Bilirubin 0.5 mg/dL (0.2-1.0) Aspartate Amino Transf (AST/SGOT) 43 U/L (15-37) Alanine Aminotransferase (ALT/SGPT) 30 U/L (14-59) Alkaline Phosphatase 61 U/L (46-116) Troponin I Quantitative 0.072 ng/mL (0.000-0.055) 0.038 ng/mL (0.000-0.055) [id number]-Mwg-[id number]-Type Natriuretic Peptide 37465 pg/mL (0-124) Total Protein 7.0 g/dL (6.4-8.2) Albumin 2.8 g/dL (3.4-5.0) Albumin/Globulin Ratio 0.7 (1.0-1.7) Triglycerides Level 101 mg/dL (0-150) Cholesterol Level 136 mg/dL (0-200) LDL Cholesterol, Calculated 72 mg/dL (0-100) VLDL Cholesterol, Calculated 20 mg/dL (0-40) Non-HDL Cholesterol Calculated 92 mg/dL (0-129) HDL Cholesterol 44 mg/dL (40-60) Cholesterol/HDL Ratio 3.1 Stool Occult Blood Positive (NEG) Nasal Screen MRSA (PCR) Negative (Negative) Test 05/10/18 14:00 05/10/18 16:22 05/10/18 19:30 05/11/18 04:40 Troponin I Quantitative 0.092 ng/mL (0.000-0.055) White Blood Count 7.1 x10^3/uL (4.0-11.0) 9.0 x10^3/uL (4.0-11.0) 10.0 x10^3/uL (4.0-11.0) Red Blood Count 4.06 x10^6/uL (3.50-5.40) 4.28 x10^6/uL (3.50-5.40) 3.89 x10^6/uL (3.50-5.40) Hemoglobin 9.7 g/dL (12.0-15.5) 10.3 g/dL (12.0-15.5) 9.2 g/dL (12.0-15.5) Hematocrit 29.8 % (36.0-47.0) 31.8 % (36.0-47.0) 28.7 % (36.0-47.0) Mean Corpuscular Volume 73 fL (79-100) 74 fL (79-100) 74 fL (79-100) Mean Corpuscular Hemoglobin 24 pg (25-35) 24 pg (25-35) 24 pg (25-35) Mean Corpuscular Hemoglobin Concent 33 g/dL (31-37) 32 g/dL (31-37) 32 g/dL (31-37) Red Cell Distribution Width 16.1 % (11.5-14.5) 16.8 % (11.5-14.5) 16.8 % (11.5-14.5) Platelet Count 142 x10^3/uL (140-400) 142 x10^3/uL (140-400) 139 x10^3/uL (140-400) Neutrophils (%) (Auto) 72 % (31-73) 69 % (31-73) 66 % (31-73) Lymphocytes (%) (Auto) 20 % (24-48) 20 % (24-48) 22 % (24-48) Monocytes (%) (Auto) 7 % (0-9) 10 % (0-9) 10 % (0-9) Eosinophils (%) (Auto) 0 % (0-3) 0 % (0-3) 1 % (0-3) Basophils (%) (Auto) 1 % (0-3) 1 % (0-3) 1 % (0-3) Neutrophils # (Auto) 5.1 x10^3uL (1.8-7.7) 6.2 x10^3uL (1.8-7.7) 6.6 x10^3uL (1.8-7.7) Lymphocytes # (Auto) 1.4 x10^3/uL (1.0-4.8) 1.8 x10^3/uL (1.0-4.8) 2.2 x10^3/uL (1.0-4.8) Monocytes # (Auto) 0.5 x10^3/uL (0.0-1.1) 0.9 x10^3/uL (0.0-1.1) 1.0 x10^3/uL (0.0-1.1) Eosinophils # (Auto) 0.0 x10^3/uL (0.0-0.7) 0.0 x10^3/uL (0.0-0.7) 0.1 x10^3/uL (0.0-0.7) Basophils # (Auto) 0.0 x10^3/uL (0.0-0.2) 0.0 x10^3/uL (0.0-0.2) 0.1 x10^3/uL (0.0-0.2) Sodium Level 144 mmol/L (136-145) Potassium Level 3.5 mmol/L (3.5-5.1) Chloride Level 111 mmol/L (98-107) Carbon Dioxide Level 24 mmol/L (21-32) Anion Gap 9 (6-14) Blood Urea Nitrogen 16 mg/dL (7-20) Creatinine 1.1 mg/dL (0.6-1.0) Estimated GFR (Cockcroft-Gault) 58.7 BUN/Creatinine Ratio 15 (6-20) Glucose Level 100 mg/dL (70-99) Calcium Level 7.8 mg/dL (8.5-10.1) Total Bilirubin 0.8 mg/dL (0.2-1.0) Aspartate Amino Transf (AST/SGOT) 42 U/L (15-37) Alanine Aminotransferase (ALT/SGPT) 31 U/L (14-59) Alkaline Phosphatase 43 U/L (46-116) Total Protein 5.7 g/dL (6.4-8.2) Albumin 2.2 g/dL (3.4-5.0) Albumin/Globulin Ratio 0.6 (1.0-1.7) Laboratory Tests Test 05/10/18 10:35 05/10/18 14:00 05/10/18 16:22 05/10/18 19:30 White Blood Count 6.1 x10^3/uL (4.0-11.0) 7.1 x10^3/uL (4.0-11.0) 9.0 x10^3/uL (4.0-11.0) Red Blood Count 3.79 x10^6/uL (3.50-5.40) 4.06 x10^6/uL (3.50-5.40) 4.28 x10^6/uL (3.50-5.40) Hemoglobin 8.5 g/dL (12.0-15.5) 9.7 g/dL (12.0-15.5) 10.3 g/dL (12.0-15.5) Hematocrit 27.8 % (36.0-47.0) 29.8 % (36.0-47.0) 31.8 % (36.0-47.0) Mean Corpuscular Volume 73 fL (79-100) 73 fL (79-100) 74 fL (79-100) Mean Corpuscular Hemoglobin 22 pg (25-35) 24 pg (25-35) 24 pg (25-35) Mean Corpuscular Hemoglobin Concent 31 g/dL (31-37) 33 g/dL (31-37) 32 g/dL (31-37) Red Cell Distribution Width 15.8 % (11.5-14.5) 16.1 % (11.5-14.5) 16.8 % (11.5-14.5) Platelet Count 150 x10^3/uL (140-400) 142 x10^3/uL (140-400) 142 x10^3/uL (140-400) Troponin I Quantitative 0.038 ng/mL (0.000-0.055) 0.092 ng/mL (0.000-0.055) Neutrophils (%) (Auto) 72 % (31-73) 69 % (31-73) Lymphocytes (%) (Auto) 20 % (24-48) 20 % (24-48) Monocytes (%) (Auto) 7 % (0-9) 10 % (0-9) Eosinophils (%) (Auto) 0 % (0-3) 0 % (0-3) Basophils (%) (Auto) 1 % (0-3) 1 % (0-3) Neutrophils # (Auto) 5.1 x10^3uL (1.8-7.7) 6.2 x10^3uL (1.8-7.7) Lymphocytes # (Auto) 1.4 x10^3/uL (1.0-4.8) 1.8 x10^3/uL (1.0-4.8) Monocytes # (Auto) 0.5 x10^3/uL (0.0-1.1) 0.9 x10^3/uL (0.0-1.1) Eosinophils # (Auto) 0.0 x10^3/uL (0.0-0.7) 0.0 x10^3/uL (0.0-0.7) Basophils # (Auto) 0.0 x10^3/uL (0.0-0.2) 0.0 x10^3/uL (0.0-0.2) Test 05/11/18 04:40 White Blood Count 10.0 x10^3/uL (4.0-11.0) Red Blood Count 3.89 x10^6/uL (3.50-5.40) Hemoglobin 9.2 g/dL (12.0-15.5) Hematocrit 28.7 % (36.0-47.0) Mean Corpuscular Volume 74 fL (79-100) Mean Corpuscular Hemoglobin 24 pg (25-35) Mean Corpuscular Hemoglobin Concent 32 g/dL (31-37) Red Cell Distribution Width 16.8 % (11.5-14.5) Platelet Count 139 x10^3/uL (140-400) Neutrophils (%) (Auto) 66 % (31-73) Lymphocytes (%) (Auto) 22 % (24-48) Monocytes (%) (Auto) 10 % (0-9) Eosinophils (%) (Auto) 1 % (0-3) Basophils (%) (Auto) 1 % (0-3) Neutrophils # (Auto) 6.6 x10^3uL (1.8-7.7) Lymphocytes # (Auto) 2.2 x10^3/uL (1.0-4.8) Monocytes # (Auto) 1.0 x10^3/uL (0.0-1.1) Eosinophils # (Auto) 0.1 x10^3/uL (0.0-0.7) Basophils # (Auto) 0.1 x10^3/uL (0.0-0.2) Sodium Level 144 mmol/L (136-145) Potassium Level 3.5 mmol/L (3.5-5.1) Chloride Level 111 mmol/L (98-107) Carbon Dioxide Level 24 mmol/L (21-32) Anion Gap 9 (6-14) Blood Urea Nitrogen 16 mg/dL (7-20) Creatinine 1.1 mg/dL (0.6-1.0) Estimated GFR (Cockcroft-Gault) 58.7 BUN/Creatinine Ratio 15 (6-20) Glucose Level 100 mg/dL (70-99) Calcium Level 7.8 mg/dL (8.5-10.1) Total Bilirubin 0.8 mg/dL (0.2-1.0) Aspartate Amino Transf (AST/SGOT) 42 U/L (15-37) Alanine Aminotransferase (ALT/SGPT) 31 U/L (14-59) Alkaline Phosphatase 43 U/L (46-116) Total Protein 5.7 g/dL (6.4-8.2) Albumin 2.2 g/dL (3.4-5.0) Albumin/Globulin Ratio 0.6 (1.0-1.7) Medications Current Medications Sodium Chloride 500 ml @ 500 mls/hr Q1H IV Last administered on 05/10/18at 06: 36; Start 05/10/18 at 06:30; Stop 05/10/18 at 06:37; Status DC Pantoprazole Sodium (PROTONIX VIAL for IV PUSH) 40 mg 1X ONCE IVP Last administered on 05/10/18at 06:36; Start 05/10/18 at 06:30; Stop 05/10/18 at 06:31 ; Status DC Hydralazine HCl (Apresoline Inj) 10 mg 1X ONCE IVP Last administered on at 08:12; Start 05/10/18 at 08:00; Stop 05/10/18 at 08:01; Status DC Amlodipine Besylate (Norvasc) 5 mg DAILY PO ; Start 05/10/18 at 09:00 Sodium Chloride 1,000 ml @ 100 mls/hr Q10H IV Last administered on 05/11/18at 04:02; Start 05/10/18 at 08:02; Stop 05/11/18 at 08:01; Status DC Pantoprazole Sodium 80 mg/ Sodium Chloride 100 ml @ 10 mls/hr Q10H IV Last administered on 05/10/18at 21:48; Start 05/10/18 at 08:15; Stop 05/11/18 at 09:13 ; Status DC Ondansetron HCl (Zofran) 4 mg 1X ONCE IV Last administered on 05/10/18at 08:52 ; Start 05/10/18 at 09:00; Stop 05/10/18 at 09:01; Status DC Ondansetron HCl (Zofran) 4 mg STK-MED ONCE .ROUTE ; Start 05/10/18 at 08:50; Stop 05/10/18 at 08:51; Status DC Sodium Chloride 1,000 ml @ 1,000 mls/hr 1X ONCE IV Last administered on at 09:00; Start 05/10/18 at 09:00; Stop 05/10/18 at 09:59; Status DC Heparin Sodium (Porcine) (HEPARIN for NUC MED) 100 unit 1X ONCE IV ; Start at 09:45; Stop 05/10/18 at 09:53; Status DC Hydralazine HCl (Apresoline Inj) 10 mg PRN Q4HRS PRN IVP ELEVATED BP, SEE COMMENTS; Start 05/10/18 at 11:15 Acetaminophen (Tylenol) 650 mg 1X PRN PRN PO PRE-TRANSFUSION; Start 05/10/18 at 11:45; Stop 05/10/18 at 21:00; Status DC Diphenhydramine HCl (Benadryl Oral Elixir) 12.5 mg 1X PRN PRN PO PRE- TRANSFUSION; Start 05/10/18 at 11:45; Stop 05/10/18 at 21:00; Status DC Diphenhydramine HCl (Benadryl) 25 mg PRN 1X PRN PO PRE-TRANSFUSION; Start 05/10 at 11:45; Stop 05/10/18 at 21:00; Status DC Pantoprazole Sodium (Protonix) 40 mg DAILYAC PO ; Start 05/11/18 at 11:30 Active Scripts Active Reported Nicotine Lozenge (Nicotine Polacrilex) 4 Mg Lozenge 4 Mg PO PRN Triamterene-Hctz 37.5-25 Mg Tb (Triamterene/Hydrochlorothiazid) 1 Each Tablet 1 Tab PO DAILY Carvedilol (Carvedilol) 6.25 Mg Tablet 6.25 Mg PO BIDWMEALS PRN Vitals/I & O Vital Sign - Last 24 Hours 05/10/18 05/10/18 05/10/18 05/10/18 11:00 12:03 12:04 13:00 Temp 98.0 98.0 Pulse 58 58 80 Resp 10 15 12 B/P (MAP) 122/65 (84) 119/67 (84) 134/88 (103) Pulse Ox 94 95 97 O2 Delivery Room Air Room Air Room Air Room Air 05/10/18 05/10/18 05/10/18 05/10/18 13:25 13:40 14:08 14:40 Temp 98.0 98.4 98.2 98.0 98.4 98.2 Pulse 82 89 93 90 Resp 12 14 20 21 B/P (MAP) 134/88 125/78 125/78 (94) 140/78 Pulse Ox 92 O2 Delivery Room Air 05/10/18 05/10/18 05/10/18 05/10/18 15:00 15:50 15:54 16:00 Temp 98.2 98.0 98.0 98.2 98.0 98.0 Pulse 88 93 93 90 Resp 17 20 20 15 B/P (MAP) 169/91 (117) 169/91 169/91 139/82 (101) Pulse Ox 98 98 O2 Delivery Room Air Room Air 05/10/18 05/10/18 05/10/18 05/10/18 16:00 16:14 17:00 17:14 Temp 98.9 98.0 98.9 98.0 Pulse 86 82 82 Resp 15 22 22 B/P (MAP) 139/82 127/66 (86) 127/66 Pulse Ox 98 O2 Delivery Room Air Room Air 05/10/18 05/10/18 05/10/18 05/10/18 18:00 18:13 19:14 19:24 Temp 98.3 99.0 99.0 98.3 99.0 99.0 Pulse 83 83 86 86 Resp 18 18 26 26 B/P (MAP) 121/66 (84) 121/66 127/66 127/66 (86) Pulse Ox 98 97 O2 Delivery Room Air Room Air 05/10/18 05/10/18 05/10/18 05/10/18 20:13 20:29 21:12 22:19 Pulse 89 89 84 Resp 25 16 16 B/P (MAP) 149/77 (101) 132/63 (86) 133/68 (89) Pulse Ox 98 96 97 O2 Delivery Room Air Room Air Room Air Room Air 05/10/18 05/10/18 05/11/18 05/11/18 23:15 23:59 00:13 02:27 Pulse 91 86 85 Resp 16 19 18 B/P (MAP) 139/70 (93) 132/73 (92) 129/60 (83) Pulse Ox 95 96 98 O2 Delivery Room Air Room Air Room Air Room Air 05/11/18 05/11/18 05/11/18 05/11/18 03:23 04:04 04:18 05:15 Pulse 82 88 82 Resp 18 16 16 B/P (MAP) 148/80 (102) 132/79 (96) 132/76 (94) Pulse Ox 97 96 97 O2 Delivery Room Air Room Air Room Air Room Air 05/11/18 05/11/18 06:16 07:00 Temp 98.2 98.2 Pulse 85 Resp 18 B/P (MAP) 135/71 (92) Pulse Ox 97 O2 Delivery Room Air Room Air Intake and Output 05/10/18 05/10/18 05/11/18 15:00 23:00 07:00 Intake Total 920 ml 1655 ml 75 ml Output Total 0 ml 0 ml Balance 920 ml 1655 ml 75 ml WINNIE SELF MD May 11, 2018 10:28
[2018-05-11] MEDS: PANTOPRAZOLE 40 MG TABLET.DR. PO SCH (11:04)
[2018-05-11] MEDS: amLODIPine BESYLATE 5 MG TABLET PO SCH (11:04)
[2018-05-11] MEDS ORDERED: NICOTINE POLACRILEX 2MG GUM PACKAGE of 12. BC PRN (12:30)
[2018-05-11] MEDS ORDERED: CARVEDILOL 6.25 MG TABLET. PO PRN (12:30)
[2018-05-11] MEDS: TRIAMTERENE/HCTZ 37.5/25MG TABLET. PO SCH (13:29)
--- NOTE | 2018-05-11 18:28 | NUR ---
Patient went to bathroom and had large, loose, brownish/red, bloody, BM in toilet and some in brief. Several clots noted in stool also. Patient states this BM isn't as bloody as it was yesterday. No c/o dizzy/lightheadedness. Will notify doctor at this time. Will continue to monitor
[2018-05-11 21:08] LABS: HEMATOCRIT 28.2 % (36.0-47.0); RED BLOOD COUNT 3.81 x10^6/uL (3.50-5.40); RED CELL DISTRIBUTION WIDTH 17.1 % (11.5-14.5); WHITE BLOOD COUNT 9.5 x10^3/uL (4.0-11.0)
[2018-05-12 03:05] VITALS: BP 153/67
[2018-05-12 04:19] LABS: BASO # 0.1 x10^3/uL (0.0-0.2); BASO % 1 % (0-3); EOS # 0.1 x10^3/uL (0.0-0.7); EOS % 2 % (0-3); HEMOGLOBIN 8.9 g/dL (12.0-15.5); LYMPH # 1.9 x10^3/uL (1.0-4.8); LYMPH % 22 % (24-48); MEAN CORPUSCULAR HEMOGLOBIN 24 pg (25-35); MEAN CORPUSCULAR HGB CONC 32 g/dL (31-37); MEAN CORPUSCULAR VOLUME 74 fL (79-100); MONO # 0.9 x10^3/uL (0.0-1.1); MONO % 10 % (0-9); NEUT # 5.5 x10^3uL (1.8-7.7); NEUT % 65 % (31-73); PLATELET COUNT 139 x10^3/uL (140-400); RED BLOOD COUNT 3.78 x10^6/uL (3.50-5.40); RED CELL DISTRIBUTION WIDTH 16.8 % (11.5-14.5); WHITE BLOOD COUNT 8.4 x10^3/uL (4.0-11.0)
[2018-05-12 05:10] LABS: CALCIUM 8.1 mg/dL (8.5-10.1); GFR 65.6
[2018-05-12 08:00] VITALS: BP 158/86
[2018-05-12] MEDS ORDERED: Pantoprazole PO (08:47)
[2018-05-12] MEDS ORDERED: AMLO5TAB10 PO (08:47)
[2018-05-12] MEDS: TRIAMTERENE/HCTZ 37.5/25MG TABLET. PO SCH (09:41)
[2018-05-12] MEDS: amLODIPine BESYLATE 5 MG TABLET PO SCH (09:41)
[2018-05-12] MEDS: PANTOPRAZOLE 40 MG TABLET.DR. PO SCH (09:41)
--- NOTE | 2018-05-12 10:08 | PDOC3 ---
Discharge Summary Visit Information Date of Admission: May 10, 2018 Date of Discharge: May 12, 2018 Admitting Diagnosis Comment: Probable diverticular bleed Final Diagnosis Problems Medical Problems: (1) CHF (congestive heart failure) Status: Acute (2) Elevated troponin I level Status: Acute (3) Hypertensive urgency Status: Acute (4) Lower GI bleeding Status: Acute Brief Hospital Course Allergies Allergies Coded Allergies Type Severity Reaction Last Updated Verified No Known Drug Allergies 05/10/18 No Vital Signs Vital Signs Date Time Temp Pulse Resp B/P (MAP) Pulse Ox O2 Delivery O2 Flow Rate FiO2 05/12/18 09:41 66 158/86 05/12/18 08:00 97.2 16 98 Room Air 97.2 Lab Results Laboratory Tests Test 05/10/18 10:35 05/10/18 14:00 05/10/18 16:22 05/10/18 19:30 White Blood Count 6.1 x10^3/uL (4.0-11.0) 7.1 x10^3/uL (4.0-11.0) 9.0 x10^3/uL (4.0-11.0) Red Blood Count 3.79 x10^6/uL (3.50-5.40) 4.06 x10^6/uL (3.50-5.40) 4.28 x10^6/uL (3.50-5.40) Hemoglobin 8.5 g/dL (12.0-15.5) 9.7 g/dL (12.0-15.5) 10.3 g/dL (12.0-15.5) Hematocrit 27.8 % (36.0-47.0) 29.8 % (36.0-47.0) 31.8 % (36.0-47.0) Mean Corpuscular Volume 73 fL (79-100) 73 fL (79-100) 74 fL (79-100) Mean Corpuscular Hemoglobin 22 pg (25-35) 24 pg (25-35) 24 pg (25-35) Mean Corpuscular Hemoglobin Concent 31 g/dL (31-37) 33 g/dL (31-37) 32 g/dL (31-37) Red Cell Distribution Width 15.8 % (11.5-14.5) 16.1 % (11.5-14.5) 16.8 % (11.5-14.5) Platelet Count 150 x10^3/uL (140-400) 142 x10^3/uL (140-400) 142 x10^3/uL (140-400) Troponin I Quantitative 0.038 ng/mL (0.000-0.055) 0.092 ng/mL (0.000-0.055) Neutrophils (%) (Auto) 72 % (31-73) 69 % (31-73) Lymphocytes (%) (Auto) 20 % (24-48) 20 % (24-48) Monocytes (%) (Auto) 7 % (0-9) 10 % (0-9) Eosinophils (%) (Auto) 0 % (0-3) 0 % (0-3) Basophils (%) (Auto) 1 % (0-3) 1 % (0-3) Neutrophils # (Auto) 5.1 x10^3uL (1.8-7.7) 6.2 x10^3uL (1.8-7.7) Lymphocytes # (Auto) 1.4 x10^3/uL (1.0-4.8) 1.8 x10^3/uL (1.0-4.8) Monocytes # (Auto) 0.5 x10^3/uL (0.0-1.1) 0.9 x10^3/uL (0.0-1.1) Eosinophils # (Auto) 0.0 x10^3/uL (0.0-0.7) 0.0 x10^3/uL (0.0-0.7) Basophils # (Auto) 0.0 x10^3/uL (0.0-0.2) 0.0 x10^3/uL (0.0-0.2) Test 05/11/18 04:40 05/11/18 20:53 05/12/18 03:20 White Blood Count 10.0 x10^3/uL (4.0-11.0) 9.5 x10^3/uL (4.0-11.0) 8.4 x10^3/uL (4.0-11.0) Red Blood Count 3.89 x10^6/uL (3.50-5.40) 3.81 x10^6/uL (3.50-5.40) 3.78 x10^6/uL (3.50-5.40) Hemoglobin 9.2 g/dL (12.0-15.5) 9.0 g/dL (12.0-15.5) 8.9 g/dL (12.0-15.5) Hematocrit 28.7 % (36.0-47.0) 28.2 % (36.0-47.0) 28.0 % (36.0-47.0) Mean Corpuscular Volume 74 fL (79-100) 74 fL (79-100) 74 fL (79-100) Mean Corpuscular Hemoglobin 24 pg (25-35) 24 pg (25-35) 24 pg (25-35) Mean Corpuscular Hemoglobin Concent 32 g/dL (31-37) 32 g/dL (31-37) 32 g/dL (31-37) Red Cell Distribution Width 16.8 % (11.5-14.5) 17.1 % (11.5-14.5) 16.8 % (11.5-14.5) Platelet Count 139 x10^3/uL (140-400) 148 x10^3/uL (140-400) 139 x10^3/uL (140-400) Neutrophils (%) (Auto) 66 % (31-73) 65 % (31-73) Lymphocytes (%) (Auto) 22 % (24-48) 22 % (24-48) Monocytes (%) (Auto) 10 % (0-9) 10 % (0-9) Eosinophils (%) (Auto) 1 % (0-3) 2 % (0-3) Basophils (%) (Auto) 1 % (0-3) 1 % (0-3) Neutrophils # (Auto) 6.6 x10^3uL (1.8-7.7) 5.5 x10^3uL (1.8-7.7) Lymphocytes # (Auto) 2.2 x10^3/uL (1.0-4.8) 1.9 x10^3/uL (1.0-4.8) Monocytes # (Auto) 1.0 x10^3/uL (0.0-1.1) 0.9 x10^3/uL (0.0-1.1) Eosinophils # (Auto) 0.1 x10^3/uL (0.0-0.7) 0.1 x10^3/uL (0.0-0.7) Basophils # (Auto) 0.1 x10^3/uL (0.0-0.2) 0.1 x10^3/uL (0.0-0.2) Sodium Level 144 mmol/L (136-145) 142 mmol/L (136-145) Potassium Level 3.5 mmol/L (3.5-5.1) 3.0 mmol/L (3.5-5.1) Chloride Level 111 mmol/L (98-107) 108 mmol/L (98-107) Carbon Dioxide Level 24 mmol/L (21-32) 25 mmol/L (21-32) Anion Gap 9 (6-14) 9 (6-14) Blood Urea Nitrogen 16 mg/dL (7-20) 13 mg/dL (7-20) Creatinine 1.1 mg/dL (0.6-1.0) 1.0 mg/dL (0.6-1.0) Estimated GFR (Cockcroft-Gault) 58.7 65.6 BUN/Creatinine Ratio 15 (6-20) Glucose Level 100 mg/dL (70-99) 87 mg/dL (70-99) Calcium Level 7.8 mg/dL (8.5-10.1) 8.1 mg/dL (8.5-10.1) Iron Level 151 ug/dL (50-170) Total Iron Binding Capacity 205 ug/dL (250-450) Iron Saturation 74 % (15-34) Total Bilirubin 0.8 mg/dL (0.2-1.0) Aspartate Amino Transf (AST/SGOT) 42 U/L (15-37) Alanine Aminotransferase (ALT/SGPT) 31 U/L (14-59) Alkaline Phosphatase 43 U/L (46-116) Total Protein 5.7 g/dL (6.4-8.2) Albumin 2.2 g/dL (3.4-5.0) Albumin/Globulin Ratio 0.6 (1.0-1.7) Laboratory Tests Test 05/11/18 20:53 05/12/18 03:20 White Blood Count 9.5 x10^3/uL (4.0-11.0) 8.4 x10^3/uL (4.0-11.0) Red Blood Count 3.81 x10^6/uL (3.50-5.40) 3.78 x10^6/uL (3.50-5.40) Hemoglobin 9.0 g/dL (12.0-15.5) 8.9 g/dL (12.0-15.5) Hematocrit 28.2 % (36.0-47.0) 28.0 % (36.0-47.0) Mean Corpuscular Volume 74 fL (79-100) 74 fL (79-100) Mean Corpuscular Hemoglobin 24 pg (25-35) 24 pg (25-35) Mean Corpuscular Hemoglobin Concent 32 g/dL (31-37) 32 g/dL (31-37) Red Cell Distribution Width 17.1 % (11.5-14.5) 16.8 % (11.5-14.5) Platelet Count 148 x10^3/uL (140-400) 139 x10^3/uL (140-400) Neutrophils (%) (Auto) 65 % (31-73) Lymphocytes (%) (Auto) 22 % (24-48) Monocytes (%) (Auto) 10 % (0-9) Eosinophils (%) (Auto) 2 % (0-3) Basophils (%) (Auto) 1 % (0-3) Neutrophils # (Auto) 5.5 x10^3uL (1.8-7.7) Lymphocytes # (Auto) 1.9 x10^3/uL (1.0-4.8) Monocytes # (Auto) 0.9 x10^3/uL (0.0-1.1) Eosinophils # (Auto) 0.1 x10^3/uL (0.0-0.7) Basophils # (Auto) 0.1 x10^3/uL (0.0-0.2) Sodium Level 142 mmol/L (136-145) Potassium Level 3.0 mmol/L (3.5-5.1) Chloride Level 108 mmol/L (98-107) Carbon Dioxide Level 25 mmol/L (21-32) Anion Gap 9 (6-14) Blood Urea Nitrogen 13 mg/dL (7-20) Creatinine 1.0 mg/dL (0.6-1.0) Estimated GFR (Cockcroft-Gault) 65.6 Glucose Level 87 mg/dL (70-99) Calcium Level 8.1 mg/dL (8.5-10.1) Brief Hospital Course Ms. Dye is a 72 old AA female who was admitted for bright red blood per rectum quite significant amount. Was admitted to ICU initially but hemodynamically stable. Comanagement GI. Has had multiple colonoscopies in the past. Assessment of the services probably diverticular bleed. Bleeding scan was negative. Hemodynamically stable. Was not taking aspirin or NSAIDs at home. Trial of GI soft for now. If cleared by GI, can go home with PPI 40 twice a day and Norvasc once a day. These are the meds needed to start in house COnsultS: Gi, GS Proc; PPI gtt Discharge Information Condition at Discharge: Improved, Stable Follow Up: Weeks (GI 4 weeks) Disposition/Orders: D/C to Home Scheduled Amlodipine Besylate (Amlodipine Besylate) 5 Mg Tablet, 5 MG PO DAILY for htn MDD 1, #30 Prescribed by: MELANI VANEGAS on 05/12/18 0847 Nicotine Polacrilex (Nicotine Lozenge) 4 Mg Lozenge, 4 MG PO PRN for smoking, ( Reported) Entered as Reported by: SRIDHAR CHACON on 05/10/187 Last Action: Converted on 05/11/18 1224 by WINNIE SELF MD Triamterene/Hydrochlorothiazid (Triamterene-Hctz 37.5-25 Mg Tb) 1 Each Tablet, 1 TAB PO DAILY for fluid retention, (Reported) Entered as Reported by: SRIDHAR CHACON on 05/10/181346 Last Action: Continued on 05/11/18 1224 by WINNIE SELF MD [Pantoprazole] 40 MG TABLET.DR, 40 MG PO DAILYAC for gi bleed MDD 1, #60 Prescribed by: MELANI VANEGAS on 05/12/18 0847 Scheduled PRN Carvedilol (Carvedilol ) 6.25 Mg Tablet, 6.25 MG PO BIDWMEALS PRN for hypertension, (Reported) Entered as Reported by: OWEN CORREIA on 05/10/18 0551 Last Taken: Unknown Dose on 05/10/18 Last Action: Continued on 05/11/18 1224 by MD GUILHERME LINK CHERRIE Y MD May 12, 2018 10:08
--- NOTE | 2018-05-12 11:05 | PDOC ---
G I PROGRESS NOTE Subjective Passed small amount of old bloody sediment in loose stool this morning. No complaints otherwise. Tolerating liquids. Physical Exam Lungs clear. RRR Abdomen soft, not tender nor distended. Review of Relevant I have reviewed the following items regina (where applicable) has been applied. Labs Laboratory Tests Test 05/10/18 14:00 05/10/18 16:22 05/10/18 19:30 05/11/18 04:40 Troponin I Quantitative 0.092 ng/mL (0.000-0.055) White Blood Count 7.1 x10^3/uL (4.0-11.0) 9.0 x10^3/uL (4.0-11.0) 10.0 x10^3/uL (4.0-11.0) Red Blood Count 4.06 x10^6/uL (3.50-5.40) 4.28 x10^6/uL (3.50-5.40) 3.89 x10^6/uL (3.50-5.40) Hemoglobin 9.7 g/dL (12.0-15.5) 10.3 g/dL (12.0-15.5) 9.2 g/dL (12.0-15.5) Hematocrit 29.8 % (36.0-47.0) 31.8 % (36.0-47.0) 28.7 % (36.0-47.0) Mean Corpuscular Volume 73 fL (79-100) 74 fL (79-100) 74 fL (79-100) Mean Corpuscular Hemoglobin 24 pg (25-35) 24 pg (25-35) 24 pg (25-35) Mean Corpuscular Hemoglobin Concent 33 g/dL (31-37) 32 g/dL (31-37) 32 g/dL (31-37) Red Cell Distribution Width 16.1 % (11.5-14.5) 16.8 % (11.5-14.5) 16.8 % (11.5-14.5) Platelet Count 142 x10^3/uL (140-400) 142 x10^3/uL (140-400) 139 x10^3/uL (140-400) Neutrophils (%) (Auto) 72 % (31-73) 69 % (31-73) 66 % (31-73) Lymphocytes (%) (Auto) 20 % (24-48) 20 % (24-48) 22 % (24-48) Monocytes (%) (Auto) 7 % (0-9) 10 % (0-9) 10 % (0-9) Eosinophils (%) (Auto) 0 % (0-3) 0 % (0-3) 1 % (0-3) Basophils (%) (Auto) 1 % (0-3) 1 % (0-3) 1 % (0-3) Neutrophils # (Auto) 5.1 x10^3uL (1.8-7.7) 6.2 x10^3uL (1.8-7.7) 6.6 x10^3uL (1.8-7.7) Lymphocytes # (Auto) 1.4 x10^3/uL (1.0-4.8) 1.8 x10^3/uL (1.0-4.8) 2.2 x10^3/uL (1.0-4.8) Monocytes # (Auto) 0.5 x10^3/uL (0.0-1.1) 0.9 x10^3/uL (0.0-1.1) 1.0 x10^3/uL (0.0-1.1) Eosinophils # (Auto) 0.0 x10^3/uL (0.0-0.7) 0.0 x10^3/uL (0.0-0.7) 0.1 x10^3/uL (0.0-0.7) Basophils # (Auto) 0.0 x10^3/uL (0.0-0.2) 0.0 x10^3/uL (0.0-0.2) 0.1 x10^3/uL (0.0-0.2) Sodium Level 144 mmol/L (136-145) Potassium Level 3.5 mmol/L (3.5-5.1) Chloride Level 111 mmol/L (98-107) Carbon Dioxide Level 24 mmol/L (21-32) Anion Gap 9 (6-14) Blood Urea Nitrogen 16 mg/dL (7-20) Creatinine 1.1 mg/dL (0.6-1.0) Estimated GFR (Cockcroft-Gault) 58.7 BUN/Creatinine Ratio 15 (6-20) Glucose Level 100 mg/dL (70-99) Calcium Level 7.8 mg/dL (8.5-10.1) Iron Level 151 ug/dL (50-170) Total Iron Binding Capacity 205 ug/dL (250-450) Iron Saturation 74 % (15-34) Total Bilirubin 0.8 mg/dL (0.2-1.0) Aspartate Amino Transf (AST/SGOT) 42 U/L (15-37) Alanine Aminotransferase (ALT/SGPT) 31 U/L (14-59) Alkaline Phosphatase 43 U/L (46-116) Total Protein 5.7 g/dL (6.4-8.2) Albumin 2.2 g/dL (3.4-5.0) Albumin/Globulin Ratio 0.6 (1.0-1.7) Test 05/11/18 20:53 05/12/18 03:20 White Blood Count 9.5 x10^3/uL (4.0-11.0) 8.4 x10^3/uL (4.0-11.0) Red Blood Count 3.81 x10^6/uL (3.50-5.40) 3.78 x10^6/uL (3.50-5.40) Hemoglobin 9.0 g/dL (12.0-15.5) 8.9 g/dL (12.0-15.5) Hematocrit 28.2 % (36.0-47.0) 28.0 % (36.0-47.0) Mean Corpuscular Volume 74 fL (79-100) 74 fL (79-100) Mean Corpuscular Hemoglobin 24 pg (25-35) 24 pg (25-35) Mean Corpuscular Hemoglobin Concent 32 g/dL (31-37) 32 g/dL (31-37) Red Cell Distribution Width 17.1 % (11.5-14.5) 16.8 % (11.5-14.5) Platelet Count 148 x10^3/uL (140-400) 139 x10^3/uL (140-400) Neutrophils (%) (Auto) 65 % (31-73) Lymphocytes (%) (Auto) 22 % (24-48) Monocytes (%) (Auto) 10 % (0-9) Eosinophils (%) (Auto) 2 % (0-3) Basophils (%) (Auto) 1 % (0-3) Neutrophils # (Auto) 5.5 x10^3uL (1.8-7.7) Lymphocytes # (Auto) 1.9 x10^3/uL (1.0-4.8) Monocytes # (Auto) 0.9 x10^3/uL (0.0-1.1) Eosinophils # (Auto) 0.1 x10^3/uL (0.0-0.7) Basophils # (Auto) 0.1 x10^3/uL (0.0-0.2) Sodium Level 142 mmol/L (136-145) Potassium Level 3.0 mmol/L (3.5-5.1) Chloride Level 108 mmol/L (98-107) Carbon Dioxide Level 25 mmol/L (21-32) Anion Gap 9 (6-14) Blood Urea Nitrogen 13 mg/dL (7-20) Creatinine 1.0 mg/dL (0.6-1.0) Estimated GFR (Cockcroft-Gault) 65.6 Glucose Level 87 mg/dL (70-99) Calcium Level 8.1 mg/dL (8.5-10.1) Laboratory Tests Test 05/11/18 20:53 05/12/18 03:20 White Blood Count 9.5 x10^3/uL (4.0-11.0) 8.4 x10^3/uL (4.0-11.0) Red Blood Count 3.81 x10^6/uL (3.50-5.40) 3.78 x10^6/uL (3.50-5.40) Hemoglobin 9.0 g/dL (12.0-15.5) 8.9 g/dL (12.0-15.5) Hematocrit 28.2 % (36.0-47.0) 28.0 % (36.0-47.0) Mean Corpuscular Volume 74 fL (79-100) 74 fL (79-100) Mean Corpuscular Hemoglobin 24 pg (25-35) 24 pg (25-35) Mean Corpuscular Hemoglobin Concent 32 g/dL (31-37) 32 g/dL (31-37) Red Cell Distribution Width 17.1 % (11.5-14.5) 16.8 % (11.5-14.5) Platelet Count 148 x10^3/uL (140-400) 139 x10^3/uL (140-400) Neutrophils (%) (Auto) 65 % (31-73) Lymphocytes (%) (Auto) 22 % (24-48) Monocytes (%) (Auto) 10 % (0-9) Eosinophils (%) (Auto) 2 % (0-3) Basophils (%) (Auto) 1 % (0-3) Neutrophils # (Auto) 5.5 x10^3uL (1.8-7.7) Lymphocytes # (Auto) 1.9 x10^3/uL (1.0-4.8) Monocytes # (Auto) 0.9 x10^3/uL (0.0-1.1) Eosinophils # (Auto) 0.1 x10^3/uL (0.0-0.7) Basophils # (Auto) 0.1 x10^3/uL (0.0-0.2) Sodium Level 142 mmol/L (136-145) Potassium Level 3.0 mmol/L (3.5-5.1) Chloride Level 108 mmol/L (98-107) Carbon Dioxide Level 25 mmol/L (21-32) Anion Gap 9 (6-14) Blood Urea Nitrogen 13 mg/dL (7-20) Creatinine 1.0 mg/dL (0.6-1.0) Estimated GFR (Cockcroft-Gault) 65.6 Glucose Level 87 mg/dL (70-99) Calcium Level 8.1 mg/dL (8.5-10.1) Hemoglobin stable. Iron studies likely confounded by prior transfusion. Vitals/I & O Vital Sign - Last 24 Hours 05/11/18 05/11/18 05/11/18 05/11/18 11:04 16:14 19:05 20:00 Temp 98.3 98.8 98.3 98.8 Pulse 70 87 75 Resp 20 18 B/P (MAP) 160/81 176/102 (126) 161/81 (107) Pulse Ox 97 98 O2 Delivery Room Air Room Air Room Air 05/11/18 05/12/18 05/12/18 05/12/18 23:05 03:05 08:00 09:41 Temp 98.3 97.9 97.2 98.3 97.9 97.2 Pulse 78 71 66 66 Resp 18 18 16 B/P (MAP) 133/67 (89) 153/67 (95) 158/86 (110) 158/86 Pulse Ox 99 98 98 O2 Delivery Room Air Room Air Room Air Intake and Output 05/11/18 05/11/18 05/12/18 15:00 23:00 07:00 Intake Total 200 ml 350 ml Balance 200 ml 350 ml Problem List Problems Medical Problems: (1) CHF (congestive heart failure) Status: Acute (2) Elevated troponin I level Status: Acute (3) Hypertensive urgency Status: Acute (4) Lower GI bleeding Status: Acute Assessment Likely diverticular bleed; seems to have ceased. Plan of Care Note Cautiously advance diet and observe. No ASA, other anticoags for at least a week. JOHN DAVIS MD May 12, 2018 11:05
[2018-05-12 12:00] VITALS: BP 190/76
[2018-05-12 15:00] VITALS: BP 160/80
--- NOTE | 2018-05-12 15:12 | PDOC ---
PROGRESS NOTES Subjective Subjective feels well, no further bleeding Objective Objective Vital Signs Date Time Temp Pulse Resp B/P (MAP) Pulse Ox O2 Delivery O2 Flow Rate FiO2 05/12/18 12:00 97.4 96 18 190/76 (114) 99 Room Air 97.4 Intake and Output 05/12/18 06:59 Intake Total 550 ml Balance 550 ml Intake Oral 550 ml # Voids 4 Physical Exam Abdomen: Soft, No tenderness Heart: Regular rate Extremities: No clubbing, No cyanosis General: Alert, Oriented X3 HEENT: Atraumatic Lungs: Clear to auscultation Neuro: Normal speech, Strength at 5/5 X4 ext Psych/Mental Status: Mental status NL Assessment Assessment Problems Medical Problems: (1) CHF (congestive heart failure) Status: Acute (2) Elevated troponin I level Status: Acute (3) Hypertensive urgency Status: Acute (4) Lower GI bleeding Status: Acute Plan Plan of Care No further signs of bleeding; will sign off, please call if we can assist in the future Comment Review of Relevant I have reviewed the following items regina (where applicable) has been applied. Labs Laboratory Tests Test 05/10/18 16:22 05/10/18 19:30 05/11/18 04:40 05/11/18 20:53 White Blood Count 7.1 x10^3/uL (4.0-11.0) 9.0 x10^3/uL (4.0-11.0) 10.0 x10^3/uL (4.0-11.0) 9.5 x10^3/uL (4.0-11.0) Red Blood Count 4.06 x10^6/uL (3.50-5.40) 4.28 x10^6/uL (3.50-5.40) 3.89 x10^6/uL (3.50-5.40) 3.81 x10^6/uL (3.50-5.40) Hemoglobin 9.7 g/dL (12.0-15.5) 10.3 g/dL (12.0-15.5) 9.2 g/dL (12.0-15.5) 9.0 g/dL (12.0-15.5) Hematocrit 29.8 % (36.0-47.0) 31.8 % (36.0-47.0) 28.7 % (36.0-47.0) 28.2 % (36.0-47.0) Mean Corpuscular Volume 73 fL (79-100) 74 fL (79-100) 74 fL (79-100) 74 fL ( 79-100) Mean Corpuscular Hemoglobin 24 pg (25-35) 24 pg (25-35) 24 pg (25-35) 24 pg ( 25-35) Mean Corpuscular Hemoglobin Concent 33 g/dL (31-37) 32 g/dL (31-37) 32 g/dL (31-37) 32 g/dL (31-37) Red Cell Distribution Width 16.1 % (11.5-14.5) 16.8 % (11.5-14.5) 16.8 % (11.5-14.5) 17.1 % (11.5-14.5) Platelet Count 142 x10^3/uL (140-400) 142 x10^3/uL (140-400) 139 x10^3/uL (140-400) 148 x10^3/uL (140-400) Neutrophils (%) (Auto) 72 % (31-73) 69 % (31-73) 66 % (31-73) Lymphocytes (%) (Auto) 20 % (24-48) 20 % (24-48) 22 % (24-48) Monocytes (%) (Auto) 7 % (0-9) 10 % (0-9) 10 % (0-9) Eosinophils (%) (Auto) 0 % (0-3) 0 % (0-3) 1 % (0-3) Basophils (%) (Auto) 1 % (0-3) 1 % (0-3) 1 % (0-3) Neutrophils # (Auto) 5.1 x10^3uL (1.8-7.7) 6.2 x10^3uL (1.8-7.7) 6.6 x10^3uL (1.8-7.7) Lymphocytes # (Auto) 1.4 x10^3/uL (1.0-4.8) 1.8 x10^3/uL (1.0-4.8) 2.2 x10^3/uL (1.0-4.8) Monocytes # (Auto) 0.5 x10^3/uL (0.0-1.1) 0.9 x10^3/uL (0.0-1.1) 1.0 x10^3/uL (0.0-1.1) Eosinophils # (Auto) 0.0 x10^3/uL (0.0-0.7) 0.0 x10^3/uL (0.0-0.7) 0.1 x10^3/uL (0.0-0.7) Basophils # (Auto) 0.0 x10^3/uL (0.0-0.2) 0.0 x10^3/uL (0.0-0.2) 0.1 x10^3/uL (0.0-0.2) Sodium Level 144 mmol/L (136-145) Potassium Level 3.5 mmol/L (3.5-5.1) Chloride Level 111 mmol/L (98-107) Carbon Dioxide Level 24 mmol/L (21-32) Anion Gap 9 (6-14) Blood Urea Nitrogen 16 mg/dL (7-20) Creatinine 1.1 mg/dL (0.6-1.0) Estimated GFR (Cockcroft-Gault) 58.7 BUN/Creatinine Ratio 15 (6-20) Glucose Level 100 mg/dL (70-99) Calcium Level 7.8 mg/dL (8.5-10.1) Iron Level 151 ug/dL (50-170) Total Iron Binding Capacity 205 ug/dL (250-450) Iron Saturation 74 % (15-34) Total Bilirubin 0.8 mg/dL (0.2-1.0) Aspartate Amino Transf (AST/SGOT) 42 U/L (15-37) Alanine Aminotransferase (ALT/SGPT) 31 U/L (14-59) Alkaline Phosphatase 43 U/L (46-116) Total Protein 5.7 g/dL (6.4-8.2) Albumin 2.2 g/dL (3.4-5.0) Albumin/Globulin Ratio 0.6 (1.0-1.7) Test 05/12/18 03:20 White Blood Count 8.4 x10^3/uL (4.0-11.0) Red Blood Count 3.78 x10^6/uL (3.50-5.40) Hemoglobin 8.9 g/dL (12.0-15.5) Hematocrit 28.0 % (36.0-47.0) Mean Corpuscular Volume 74 fL (79-100) Mean Corpuscular Hemoglobin 24 pg (25-35) Mean Corpuscular Hemoglobin Concent 32 g/dL (31-37) Red Cell Distribution Width 16.8 % (11.5-14.5) Platelet Count 139 x10^3/uL (140-400) Neutrophils (%) (Auto) 65 % (31-73) Lymphocytes (%) (Auto) 22 % (24-48) Monocytes (%) (Auto) 10 % (0-9) Eosinophils (%) (Auto) 2 % (0-3) Basophils (%) (Auto) 1 % (0-3) Neutrophils # (Auto) 5.5 x10^3uL (1.8-7.7) Lymphocytes # (Auto) 1.9 x10^3/uL (1.0-4.8) Monocytes # (Auto) 0.9 x10^3/uL (0.0-1.1) Eosinophils # (Auto) 0.1 x10^3/uL (0.0-0.7) Basophils # (Auto) 0.1 x10^3/uL (0.0-0.2) Sodium Level 142 mmol/L (136-145) Potassium Level 3.0 mmol/L (3.5-5.1) Chloride Level 108 mmol/L (98-107) Carbon Dioxide Level 25 mmol/L (21-32) Anion Gap 9 (6-14) Blood Urea Nitrogen 13 mg/dL (7-20) Creatinine 1.0 mg/dL (0.6-1.0) Estimated GFR (Cockcroft-Gault) 65.6 Glucose Level 87 mg/dL (70-99) Calcium Level 8.1 mg/dL (8.5-10.1) Laboratory Tests Test 05/11/18 20:53 05/12/18 03:20 White Blood Count 9.5 x10^3/uL (4.0-11.0) 8.4 x10^3/uL (4.0-11.0) Red Blood Count 3.81 x10^6/uL (3.50-5.40) 3.78 x10^6/uL (3.50-5.40) Hemoglobin 9.0 g/dL (12.0-15.5) 8.9 g/dL (12.0-15.5) Hematocrit 28.2 % (36.0-47.0) 28.0 % (36.0-47.0) Mean Corpuscular Volume 74 fL (79-100) 74 fL (79-100) Mean Corpuscular Hemoglobin 24 pg (25-35) 24 pg (25-35) Mean Corpuscular Hemoglobin Concent 32 g/dL (31-37) 32 g/dL (31-37) Red Cell Distribution Width 17.1 % (11.5-14.5) 16.8 % (11.5-14.5) Platelet Count 148 x10^3/uL (140-400) 139 x10^3/uL (140-400) Neutrophils (%) (Auto) 65 % (31-73) Lymphocytes (%) (Auto) 22 % (24-48) Monocytes (%) (Auto) 10 % (0-9) Eosinophils (%) (Auto) 2 % (0-3) Basophils (%) (Auto) 1 % (0-3) Neutrophils # (Auto) 5.5 x10^3uL (1.8-7.7) Lymphocytes # (Auto) 1.9 x10^3/uL (1.0-4.8) Monocytes # (Auto) 0.9 x10^3/uL (0.0-1.1) Eosinophils # (Auto) 0.1 x10^3/uL (0.0-0.7) Basophils # (Auto) 0.1 x10^3/uL (0.0-0.2) Sodium Level 142 mmol/L (136-145) Potassium Level 3.0 mmol/L (3.5-5.1) Chloride Level 108 mmol/L (98-107) Carbon Dioxide Level 25 mmol/L (21-32) Anion Gap 9 (6-14) Blood Urea Nitrogen 13 mg/dL (7-20) Creatinine 1.0 mg/dL (0.6-1.0) Estimated GFR (Cockcroft-Gault) 65.6 Glucose Level 87 mg/dL (70-99) Calcium Level 8.1 mg/dL (8.5-10.1) Medications Current Medications Sodium Chloride 500 ml @ 500 mls/hr Q1H IV Last administered on 05/10/18at 06: 36; Start 05/10/18 at 06:30; Stop 05/10/18 at 06:37; Status DC Pantoprazole Sodium (PROTONIX VIAL for IV PUSH) 40 mg 1X ONCE IVP Last administered on 05/10/18at 06:36; Start 05/10/18 at 06:30; Stop 05/10/18 at 06:31 ; Status DC Hydralazine HCl (Apresoline Inj) 10 mg 1X ONCE IVP Last administered on at 08:12; Start 05/10/18 at 08:00; Stop 05/10/18 at 08:01; Status DC Amlodipine Besylate (Norvasc) 5 mg DAILY PO Last administered on 05/12/18at 09: 41; Start 05/10/18 at 09:00 Sodium Chloride 1,000 ml @ 100 mls/hr Q10H IV Last administered on 05/11/18at 04:02; Start 05/10/18 at 08:02; Stop 05/11/18 at 08:01; Status DC Pantoprazole Sodium 80 mg/ Sodium Chloride 100 ml @ 10 mls/hr Q10H IV Last administered on 05/10/18at 21:48; Start 05/10/18 at 08:15; Stop 05/11/18 at 09:13 ; Status DC Ondansetron HCl (Zofran) 4 mg 1X ONCE IV Last administered on 05/10/18at 08:52 ; Start 05/10/18 at 09:00; Stop 05/10/18 at 09:01; Status DC Ondansetron HCl (Zofran) 4 mg STK-MED ONCE .ROUTE ; Start 05/10/18 at 08:50; Stop 05/10/18 at 08:51; Status DC Sodium Chloride 1,000 ml @ 1,000 mls/hr 1X ONCE IV Last administered on at 09:00; Start 05/10/18 at 09:00; Stop 05/10/18 at 09:59; Status DC Heparin Sodium (Porcine) (HEPARIN for NUC MED) 100 unit 1X ONCE IV ; Start at 09:45; Stop 05/10/18 at 09:53; Status DC Hydralazine HCl (Apresoline Inj) 10 mg PRN Q4HRS PRN IVP ELEVATED BP, SEE COMMENTS; Start 05/10/18 at 11:15 Acetaminophen (Tylenol) 650 mg 1X PRN PRN PO PRE-TRANSFUSION; Start 05/10/18 at 11:45; Stop 05/10/18 at 21:00; Status DC Diphenhydramine HCl (Benadryl Oral Elixir) 12.5 mg 1X PRN PRN PO PRE- TRANSFUSION; Start 05/10/18 at 11:45; Stop 05/10/18 at 21:00; Status DC Diphenhydramine HCl (Benadryl) 25 mg PRN 1X PRN PO PRE-TRANSFUSION; Start 05/10 at 11:45; Stop 05/10/18 at 21:00; Status DC Pantoprazole Sodium (Protonix) 40 mg DAILYAC PO Last administered on 05/12/18at 09:41; Start 05/11/18 at 11:30 Carvedilol (Coreg) 6.25 mg BIDWMEALS PRN PO hypertension; Start 05/11/18 at 12: 30; Stop 05/12/18 at 11:58; Status DC Triamterene/HCTZ (Maxzide 37.5/ 25mg) 1 tab DAILY PO Last administered on at 09:41; Start 05/11/18 at 13:00 Nicotine Polacrilex (Nicorette Gum) 1 each PRN Q1HR PRN BC SMOKING CESSATION Last administered on 05/11/18at 13:30; Start 05/11/18 at 12:30 Carvedilol (Coreg) 6.25 mg BIDWMEALS PO ; Start 05/12/18 at 17:00 Active Scripts Active Amlodipine Besylate 5 Mg Tablet 5 Mg PO DAILY MDD 1 [Pantoprazole] 40 MG Tablet.dr 40 Mg PO DAILYAC MDD 1 Reported Nicotine Lozenge (Nicotine Polacrilex) 4 Mg Lozenge 4 Mg PO PRN Triamterene-Hctz 37.5-25 Mg Tb (Triamterene/Hydrochlorothiazid) 1 Each Tablet 1 Tab PO DAILY Carvedilol (Carvedilol) 6.25 Mg Tablet 6.25 Mg PO BIDWMEALS PRN Vitals/I & O Vital Sign - Last 24 Hours 05/11/18 05/11/18 05/11/18 05/11/18 16:14 19:05 20:00 23:05 Temp 98.3 98.8 98.3 98.3 98.8 98.3 Pulse 87 75 78 Resp 20 18 18 B/P (MAP) 176/102 (126) 161/81 (107) 133/67 (89) Pulse Ox 97 98 99 O2 Delivery Room Air Room Air Room Air Room Air 05/12/18 05/12/18 05/12/18 05/12/18 03:05 08:00 08:00 09:41 Temp 97.9 97.2 97.9 97.2 Pulse 71 66 66 Resp 18 16 B/P (MAP) 153/67 (95) 158/86 (110) 158/86 Pulse Ox 98 98 O2 Delivery Room Air Room Air Room Air 05/12/18 12:00 Temp 97.4 97.4 Pulse 96 Resp 18 B/P (MAP) 190/76 (114) Pulse Ox 99 O2 Delivery Room Air Intake and Output 05/11/18 05/11/18 05/12/18 14:59 22:59 06:59 Intake Total 200 ml 350 ml Balance 200 ml 350 ml MIKE ROA MD May 12, 2018 15:12
[2018-05-12] MEDS ORDERED: CARVEDILOL 6.25 MG TABLET. PO SCH (17:00)
[2018-05-12 18:23] VITALS: BP 160/80
--- NOTE | 2018-05-12 19:10 | NUR ---
Patient discharged to home. Discharge instructions, medications, and follow up appointments discussed with patient. Discharge papers and prescriptions given to patient. IV discontinued. Patient has all belongings. Patient assisted out in wheelchair with staff at this time. Family here with patient.
== END 2018-05-12 18:28 | disposition home or self-care (01) | DRG 377 ==
LOC: ER 05:29 → 5 NORTH 07:04 → 1 WEST ICU 08:06 → 6 SOUTH 05-11 15:05
PROVIDERS: ADMIT Internal Medicine; ATTEND Internal Medicine
PROC: 30233N1 Transfusion of Nonautologous Red Blood Cells into Peripheral Vein, Percutaneous Approach (ICD-10-PCS; principal; 2018-05-10)
DX: K57.91 Diverticulosis of intestine, part unspecified, without perforation or abscess with bleeding (principal); G93.41 Metabolic encephalopathy; D62 Acute posthemorrhagic anemia; I24.8 Other forms of acute ischemic heart disease; I16.0 Hypertensive urgency; I11.0 Hypertensive heart disease with heart failure; M19.90 Unspecified osteoarthritis, unspecified site; I50.9 Heart failure, unspecified; Z87.891 Personal history of nicotine dependence; Z82.49 Family history of ischemic heart disease and other diseases of the circulatory system
CPT/HCPCS: 36415; 71045; 78278; 80048; 80053; 80061; 82274; 83540; 83550; 83880; 84484; 85025; 85027; 85610; 85730; 86850; 86900; 86901; 86920; 87641; 93005; 93306; 96361; 96374; 96375; A9560; C9113; J0360; J2405; J7030; J7040; P9016; 99285-25

== ENCOUNTER 2018-05-25 15:06 | Emergency (ER) | payer OTHER ==
[~2018-05-25] VITALS: Ht 172.7 cm; Wt 67.1 kg
[~2018-05-25 15:06] MED LIST: AMLO5TAB10 PO; CARV6.2511 PO; NICO4LOZ93 PO; Pantoprazole PO; TRIA1TAB3 PO
--- NOTE | 2018-05-25 16:29 | PHYS DOC ---
Past Medical History Past Medical History: Hypertension Additional Past Medical Histor: RECTAL BLEEDING Past Surgical History: No Surgical History Alcohol Use: None Drug Use: None Adult General Chief Complaint Chief Complaint: MECHANICAL FALL HPI HPI 72-year-old female presenting the emergency department today with right elbow pain and left hip pain after falling last night. Last night she sustained a mechanical fall. She did not have any dizziness she did not pass out. She did not have head injury or neck pain. She was trying to pick something up and slipped. She was able to ambulate after the incident but she does have pain in the left hip with ambulation. The pain as a sharp shooting nonradiating intermittent pain. Past medical history: Hypertension diverticulosis and a history of GI bleed Surgical history: None Social history: Denies smoking, drinks occasionally, denies IV drug use. Review of systems is negative for chest pain shortness of breath abdominal pain nausea vomiting. All other review of systems is negative. ED course: 72-year-old female presenting the emergency department today with left hip pain and right elbow pain after mechanical fall. X-rays and CT ordered. Blood pressure elevated at 183 systolic on arrival. hx of htn. CT the pelvis shows a nondisplaced fracture of the left pubic bone. I spoke with Dr. Leonardo our orthopedic surgeon who stated the patient to follow-up with him outpatient. The patient is able to tolerate ambulation with a mild amount of pain. I offered her admission to the hospital. She declines. She would like to go home. Patient was then discharged home with oral pain medication to follow- up with Dr. Leonardo in 3-4 days.The patient has been examined and was not found to have an emergency medical condition. The patient was then discharged home in stable condition. They were to return if their symptoms worsened or if they were concerned for any reason. They were also instructed to return to the emergency department if they were unable to get the recommended and appropriate follow-up. [id number] discharge instructions and return precautions were given. Patient's questions were answered to their satisfaction. Patient is comfortable with plan. Current Medications Current Medications Current Medications Medications (Trade) Dose Ordered Sig/Madeleine Start Time Stop Time Status Last Admin Dose Admin Acetaminophen/ Hydrocodone Bitart (Lortab 5/325) 2 tab 1X ONCE 05/25/18 17:00 05/25/18 17:01 DC 05/25/18 16:42 2 TAB Allergies Allergies Allergies Coded Allergies Type Severity Reaction Last Updated Verified No Known Drug Allergies 05/10/18 No Physical Exam Physical Exam Constitutional: Well developed, well nourished, no acute distress, non-toxic appearance. [] HENT: Normocephalic, atraumatic, bilateral external ears normal, oropharynx moist, no oral exudates, nose normal. [] Eyes: PERRLA, EOMI, conjunctiva normal, no discharge. [] Neck: Normal range of motion, no tenderness, supple, no stridor. [] Cardiovascular:Heart rate regular rhythm, no murmur [] Lungs & Thorax: Bilateral breath sounds clear to auscultation [] Abdomen: Bowel sounds normal, soft, no tenderness, no masses, no pulsatile masses. [] Skin: Warm, dry, no erythema, no rash. [] Back: No tenderness, no CVA tenderness. [] Extremities: The patient has mild pain to palpation the left hip. There is no pain with passive range of motion of the hip. Normal neurovascular status distally. 2 second cap refill with palpable pulse. All of the extremities are neurovascularly intact with 2 second cap refill. Patient has mild pain in the right posterior distal humerus region of the elbow. Nontender at the radius. Nontender in the ulna region. The remainder the extremities are nontender without deformities and neurovascularly intact. Neurologic: Alert and oriented X 3, normal motor function, normal sensory function, no focal deficits noted. [] Psychologic: Affect normal, judgement normal, mood normal. [] Current Patient Data Vital Signs Vital Signs Date Time Temp Pulse Resp B/P (MAP) Pulse Ox O2 Delivery O2 Flow Rate FiO2 05/25/18 16:42 17 96 Room Air 05/25/18 16:04 98.1 69 183/86 (118) 98.1 EKG EKG [] Radiology/Procedures Radiology/Procedures [] Course & Med Decision Making Course & Med Decision Making Pertinent Labs and Imaging studies reviewed. (See chart for details) [] Dragon Disclaimer Dragon Disclaimer This electronic medical record was generated, in whole or in part, using a voice recognition dictation system. Departure Departure Impression: Primary Impression: Fall Additional Impression: Pubic ramus fracture Disposition: 01 HOME, SELF-CARE Condition: STABLE Referrals: ORLIN CHAPARRO MD (PCP) Patient Instructions: Pelvic Fracture, Simple, Adult Additional Instructions: Thank you for allowing us to participate in your care today. Return to the emergency department you have any new or worsening symptoms, or if you are concerned for any reason. Return to emergency department if you have any new or concerning symptoms including but not limited to fever, chills, nausea, vomiting, intractable pain, any new rashes, chest pain, shortness of air , uncontrolled bleeding, difficulty breathing, and/or vision loss. Follow up with Dr. Leonardo in 3-4 days. Call your Primary Doctor tomorrow and inform them of your visit today. If you do not have a primary care provider we are happy to provide you with a list of our primary care providers contact information. This condition should be evaluated by your primary care physician and any recommended consulting services for continued management within 2 days after discharge. If at any time, you are having difficulty getting into your primary care doctor or a specialist, return to the emergency department. Scripts Hydrocodone Bit/Acetaminophen (HYDROCODONE-APAP 5-325 ) 1 Tab Tablet 1 TAB PO PRN Q8HRS PRN for SEVERE PAIN, #12 TAB 0 Refills Prov: LYLE KING MD 05/25/18 Problem Qualifiers LYLE KING MD May 25, 2018 16:29
--- NOTE | 2018-05-25 16:53 | RAD ---
CT study of the pelvis without contrast Clinical indications: Left hip pain after a fall. TECHNIQUE: Noncontrast helical CT scanning of the pelvis was performed. Multiplanar 2-D reconstructions were generated. PQRS compliance Statement One or more of the following individualized dose reduction techniques were utilized for this study: 1. Automated exposure control 2. Adjustment of the mA and/or kV according to patient size 3. Use of iterative reconstruction technique FINDINGS: On coronal images 26-30 and series 4, there is a nondisplaced fracture of the left-sided pubic bone at the junction with the left inferior pubic ramus. No other fracture line is evident. No diastases of the symphysis pubis or either SI joint is seen. No fracture of either proximal femur is seen. The hip joints are normally aligned. There is mild primary degenerative osteoarthritis of both hip joints. No fracture line or displacement of the sacrum or coccyx is evident. No lytic process is seen. Grade 1 anterolisthesis of L5-S1 is seen secondary to bilateral facet arthropathy. Severe sigmoid diverticulosis is seen without diverticulitis. No enlarged pelvic lymphadenopathy is evident. IMPRESSION: Nondisplaced fracture of the left pubic bone at the junction with the superior pubic ramus. No diastases is evident. Electronically signed by: Elvis Thrasher MD (05/25/2018 4:50 PM) [place] [id number]
--- NOTE | 2018-05-25 16:57 | RAD ---
3 view study of the right elbow Clinical indications: Right elbow pain after a fall. FINDINGS: No joint effusion is seen. No acute fracture or dislocation or lytic process is evident. IMPRESSION: No acute osseous abnormality. Electronically signed by: Elvis Thrasher MD (05/25/2018 4:54 PM) [place] [id number]
[2018-05-25] MEDS ORDERED: HYDROcodone/APAP 5/325MG 1 TAB TABLET PO ONE (17:00)
[2018-05-25 17:39] VITALS: BP 141/80
[2018-05-25] MEDS ORDERED: HYDR-2761 PO (17:47)
== END 2018-05-25 18:18 | disposition home or self-care (01) ==
LOC: ER 15:06
DX: S32.592A Other specified fracture of left pubis, initial encounter for closed fracture (principal); M25.521 Pain in right elbow; I10 Essential (primary) hypertension; W01.0XXA Fall on same level from slipping, tripping and stumbling without subsequent striking against object, initial encounter; Y93.89 Activity, other specified; Y92.89 Other specified places as the place of occurrence of the external cause; Y99.8 Other external cause status
CPT/HCPCS: 72192; 73080; 99284-25

== ENCOUNTER → 2019-01-18 | Outpatient (CLI) | payer OTHER ==
[~2019-01-18] MED LIST changes: +HYDR-2761 PO; +REGADENOSON 0.4 MG/5 ML DISP.SYRIN. IV ONE
--- NOTE | 2019-01-18 13:42 | RAD ---
MR#: [id number] Date of Study: 01/18/2019 Ordering Physician: KELVIN MARINELLI, Referring Physician: CECILIO HERCULES Tech: ERWIN Magana, ARRT (R) (N) APPROVED REPORT Test Type: Pharmacological Stress Nurse/Tech: Candie NOLASCO Test Indications: Elevated Troponin Cardiac History: HTN, See EMR Medications: See EMR Medical History: Hep C, See EMR Resting ECG: SR w/ 1st degree and LBBB Resting Heart Rate: 76 bpm Resting Blood Pressure: 200/97mmHg Pretest Chest Pain: No chest pain Nurse/Tech Notes Lungs CTA, Heart tones regular. Consent: The procedure was explained to the patient in lay terms. Informed consent was witnessed. Simone eout was entered into [place] [facility]. History and Stress Test performed by RT Bright (R) (N) Pharm. Details Pharmacologic stress testing was performed using 0.4mg per 5ml of regadenoson given intravenously ove r 7-10 seconds. Stress Symptoms Dyspnea POST EXERCISE Reason for Termination: Infusion complete Max HR: 110 bpm Max Blood Pressure: 196/92mmHg Blood Pressure response to exercise: Normal blood pressure response during stress. Heart Rate response to exercise: WNL Chest Pain: No. Arrhythmia: Yes. PVCs ST Change: No. INTERPRETATION Stress EKG Conclusion: Non diagnostic EKG due to LBBB. Imaging Protocol IMAGE PROTOCOL: Rest Tc-99m/stress Tc-99m 1 day Rest: Stress: Viability: Radiopharm.Tc99m McmkijynxRq25t Sestamibi Ltzg84iSh 33mCi Img Date 01/18/2019 01/18/2019 Inj-Img [id number]. 60min. Rest Admin Site:IV - Left AntecubitalAdministrator:RT Trisha (R)(N) Stress Admin Site: IV - Left AntecubitalAdministrator: RT Aurelio Novoa)(N) STRESS DATA End Diast. Vol.142.0mlAv. Heart Kmrd935.0bpm End Syst. Vol.89.0mlCO Index BSA0.0L/min Myocardial Hlol496.0gEject. Hikkwwsl19.0% Stress Rates Pk. Fill Rate1.96EDV/secLVtime Pk. Fill 149.04msec Pk. Empty Rate2.97ESV/secLVtime Pk. Kurnh749.87msec 1/3 Pk. Fill0.80EDV/sec Stress Scores Regional WT3.00Summed WT45.00 Regional WM0.00Summed WM24.00 LV Perfusion Normal perfusion at stress/rest. Wall Motion Severe LV dysfunction. EF 37% LV Perf. Quant 17 Seg. SSS2.00 17 Seg. SRS4.00 17 Seg. SDS0.00 Stress Defect Extent (% LAD)0.00Rest Defect Extent (% LAD)0.00Rev. Defect Extent (% LAD)0.00 Stress Defect Extent (% LCX) 27.50Rest Defect Extent (% LCX)37.50Rev. Defect Extent (% LCX)0.00 Stress Defect Extent (% RCA)0.00Rest Defect Extent (% RCA)0.00Rev. Defect Extent (% RCA)0.00 Stress Defect Extent (% HIMANSHU)4.80Rest Defect Extent (% HIMANSHU)6.50Rev. Defect Extent (% HIMANSHU)0.00 Other Information Quality:Good Risk Assessment: Moderate-High Risk Conclusion 1. Non-diagnostic EKG due to LBBB 2. Normal perfusion at stress/rest. No ischemia/infarct noted. 3. Severe LV dysfunction. EF 37% - Suspect this is due to LBBB or NICM based on normal perfusion. 4. Moderate to high risk for future CV events. Signed by : Wilder Clemens, Electronically Approved : 01/18/2019 13:42:36
== END ==
LOC: NM 08:58
PROVIDERS: ATTEND Internal Medicine Cardiovascular Disease
DX: I11.0 Hypertensive heart disease with heart failure (principal); I50.1 Left ventricular failure, unspecified; Z87.891 Personal history of nicotine dependence
CPT/HCPCS: 78452; 93017; A9500; J2785